=== PATIENT | female | born 1960 | race Caucasian/White ===

== ENCOUNTER 2016-09-21 23:04 | Inpatient (IN) | payer MEDICARE, OTHER ==
[~2016-09-21] VITALS: Ht 165.1 cm; Wt 59.6 kg
[2016-09-21 23:04] VITALS: BP 108/70; PULSE 90; RESP 16; TEMP 96.4; O2SAT 100
[2016-09-21] MEDS ORDERED: SODIUM CHLORIDE 0.9% FLUSH 5 ML FLUSH IVF PRN (23:15)
[2016-09-21] MEDS ORDERED: PROPOFOL 1000 MG/100 ML INJ 100 ML IV SCH (23:15)
[2016-09-21 23:20] VITALS: O2SAT 99
[2016-09-21 23:30] LABS: AUTOMATED NEUTROPHIL # 7.6 TH/MM3 (1.8-7.7); BASOPHIL % 0.4 % (0.0-2.0); EOSINOPHIL # 0.4 TH/MM3 (0-0.4); EOSINOPHIL % 4.4 % (0.0-4.0); HEMATOCRIT 35.2 % (35.0-46.0); HEMO FLAGS DIFF FINAL; LYMPH % 11.2 % (9.0-44.0); LYMPHOCYTE # 1.1 TH/MM3 (1.0-4.8); MEAN CELL VOLUME 93.2 FL (80.0-100.0); MEAN CORPUSCULAR HEMOGLOBIN 30.6 PG (27.0-34.0); MEAN CORPUSCULAR HGB CONC 32.8 % (32.0-36.0); MONO % 8.6 % (0.0-8.0); NEUT % 75.4 % (16.0-70.0); PLATELET COUNT 155 TH/MM3 (150-450); RED BLOOD COUNT 3.77 MIL/MM3 (4.00-5.30); RED CELL DISTRIBUTION WIDTH 14.6 % (11.6-17.2)
[2016-09-21 23:41] LABS: APTT (PATIENT) 28.2 SEC (24.3-30.1); INTERNATIONAL NORMALIZED RATIO 0.9 RATIO
--- NOTE | 2016-09-21 23:42 | RADRPT ---
EXAM DATE/TIME: 09/21/2016 23:06 [facility] COMPARISON: No previous studies available for comparison. INDICATIONS : Please evaluate ET placement MEDICAL HISTORY : unobtainable SURGICAL HISTORY : unobtainable ENCOUNTER: Initial ACUITY: 1 day PAIN SCORE: Non-responsive. LOCATION: Bilateral chest FINDINGS: A single view of the chest demonstrates the lungs to be symmetrically aerated without evidence of mas s, infiltrate or effusion. Endotracheal tube 6 cm above the kleber. Nasogastric tube with tip in stom ach. The cardiomediastinal contours are unremarkable. Osseous structures are intact. CONCLUSION: 1. Endotracheal tube 6 cm above the kleber. 2. Lungs are clear. Saran Richardson MD on September 21, 2016 at 23:37 Board Certified Radiologist. This report was verified electronically.
[2016-09-21 23:52] LABS: ALT (GPT) 38 U/L (10-53); ANION GAP 4 MEQ/L (5-15); AST (GOT) 39 U/L (15-37); BICARBONATE 36.1 MEQ/L (21.0-32.0); BLOOD UREA NITROGEN 20 MG/DL (7-18); CHLORIDE 98 MEQ/L (98-107); GLOMERULAR FILTRATION RATE 43 ML/MIN (>89); MAGNESIUM 1.6 MG/DL (1.5-2.5); POTASSIUM 4.2 MEQ/L (3.5-5.1); SODIUM (NA) 138 MEQ/L (136-145)
--- NOTE | 2016-09-21 23:54 | PD ---
HPI Chief Complaint: Respiratory Distress Time Seen by Provider: 23:06 Travel History International Travel<30 days: No Contact w/Intl Traveler<30days: No History of Present Illness HPI Patient is a Syeda Faye, presents to ER by [facility] after they were called to her home as she was complaining of shortness of breath. As per EMS, patient has history of CHF and COPD. EMS reports that patient's pulse ox was in the low 70 % upon their arrival at the home, reports that patient was placed on oxygen and was given a neb treatment with no relief of symptoms. Reports that patient became apneic and decision was to intubate her. Patient was intubated using 4 mg of Ativan as well as 20 of etomidate by EMS. As per EMS, pt's is on route to hospital. PFSH Social History Tobacco Use: No Allergies-Medications (Allergen,Severity, Reaction): Coded Allergies: No Known Allergies (Unverified , 09/21/16) Reported Meds & Prescriptions Reported Meds & Active Scripts Active Reported Furosemide 20 Mg Tab 20 Mg PO EVERY OTHER DAY Atorvastatin (Atorvastatin Calcium) 80 Mg Tab 80 Mg PO HS Lisinopril 40 Mg Tab 40 Mg PO DAILY Ziprasidone 60 Mg Cap 60 Mg PO BID Isosorbide Dinitrate 20 Mg Tab 20 Mg PO TID Metoprolol Tartrate 100 Mg Tab 100 Mg PO BID Hydralazine (Hydralazine HCl) 25 Mg Tab 25 Mg PO TID Take with a meal Review of Systems ROS Limitations: Intubated Physical Exam Narrative GENERAL: Patient intubated, patient stable and in no acute distress at this time SKIN: Warm and dry. HEAD: Atraumatic. Normocephalic. EYES: Pupils equal and round. No scleral icterus. No injection or drainage. ENT: No nasal bleeding or discharge. Mucous membranes pink and moist. NECK: Trachea midline. No JVD. CARDIOVASCULAR: Regular rate and rhythm. No murmur appreciated. RESPIRATORY: No accessory muscle use. Rales and wheezing to lung bases GASTROINTESTINAL: Abdomen soft, non-tender, nondistended. Hepatic and splenic margins not palpable. MUSCULOSKELETAL: No obvious deformities. No clubbing. No cyanosis. No edema. Data Data Last Documented VS Vital Signs Date Time Temp Pulse Resp B/P Pulse Ox O2 Delivery O2 Flow Rate FiO2 09/22/16 00:00 96.8 105 14 127/70 100 Ventilator 100 09/21/16 23:04 15 Orders Electrocardiogram (09/21/16 23:06) B-Type Natriuretic Peptide (09/21/16 23:06) Ckmb (Isoenzyme) Profile (09/21/16 23:06) Complete Blood Count With Diff (09/21/16 23:06) Comprehensive Metabolic Panel (09/21/16 23:06) Magnesium (Mg) (09/21/16 23:06) Prothrombin Time / Inr (Pt) (09/21/16 23:06) Act Partial Throm Time (Ptt) (09/21/16 23:06) Troponin I (09/21/16 23:06) Lipase (09/21/16 23:06) Chest, Single Ap (09/21/16 23:06) Ecg Monitoring (09/21/16 23:06) Iv Access Insert/Monitor (09/21/16 23:06) Oximetry (09/21/16 23:06) Oxygen Administration (09/21/16 23:06) Sodium Chloride 0.9% Flush (Ns Flush) (09/21/16 23:15) Lactic Acid Sepsis Protocol (09/21/16 23:06) Influenzae A/B Antigen (09/21/16 23:06) Blood Culture (09/21/16 23:06) Arterial Blood Gas (Abg) (09/21/16 23:06) Davey-Gastric Tube Insert/Mon (09/21/16 23:10) Propofol 1000 Mg/100 Ml Inj (Diprivan 10 (09/21/16 23:15) CKMB (09/21/16 23:18) CKMB% (09/21/16 23:18) Sodium Chlor 0.9% 1000 Ml Inj (Ns 1000 M (09/22/16 00:15) Ct Pulmonary Angiogram (09/22/16 00:04) Admit Order (Ed Use Only) (09/22/16 00:30) Labs Laboratory Tests Test 09/21/16 09/21/16 09/21/16 23:18 23:20 23:45 White Blood Count 10.0 TH/MM3 Red Blood Count 3.77 MIL/MM3 Hemoglobin 11.6 GM/DL Hematocrit 35.2 % Mean Corpuscular Volume 93.2 FL Mean Corpuscular Hemoglobin 30.6 PG Mean Corpuscular Hemoglobin 32.8 % Concent Red Cell Distribution Width 14.6 % Platelet Count 155 TH/MM3 Mean Platelet Volume 8.3 FL Neutrophils (%) (Auto) 75.4 % Lymphocytes (%) (Auto) 11.2 % Monocytes (%) (Auto) 8.6 % Eosinophils (%) (Auto) 4.4 % Basophils (%) (Auto) 0.4 % Neutrophils # (Auto) 7.6 TH/MM3 Lymphocytes # (Auto) 1.1 TH/MM3 Monocytes # (Auto) 0.9 TH/MM3 Eosinophils # (Auto) 0.4 TH/MM3 Basophils # (Auto) 0.0 TH/MM3 CBC Comment DIFF FINAL Differential Comment Prothrombin Time 10.0 SEC Prothromb Time International 0.9 RATIO Ratio Activated Partial 28.2 SEC Thromboplast Time Lactic Acid Level 1.2 mmol/L Sodium Level 138 MEQ/L Potassium Level 4.2 MEQ/L Chloride Level 98 MEQ/L Carbon Dioxide Level 36.1 MEQ/L Anion Gap 4 MEQ/L Blood Urea Nitrogen 20 MG/DL Creatinine 1.09 MG/DL Estimat Glomerular Filtration 43 ML/MIN Rate Random Glucose 164 MG/DL Calcium Level 8.7 MG/DL Magnesium Level 1.6 MG/DL Total Bilirubin 0.2 MG/DL Aspartate Amino Transf 39 U/L (AST/SGOT) Alanine Aminotransferase 38 U/L (ALT/SGPT) Alkaline Phosphatase 153 U/L Total Creatine Kinase 103 U/L Creatine Kinase MB 0.9 NG/ML Troponin I LESS THAN 0.02 NG/ML B-Type Natriuretic Peptide 212 PG/ML Total Protein 7.2 GM/DL Albumin 4.0 GM/DL Lipase 84 U/L Urine Color LIGHT-YELLOW Urine Turbidity CLEAR Urine pH 6.0 Urine Specific [place] 1.007 Urine Protein 30 mg/dL Urine Glucose (UA) NEG mg/dL Urine Ketones NEG mg/dL Urine Occult Blood NEG Urine Nitrite NEG Urine Bilirubin NEG Urine Urobilinogen LESS THAN 2.0 MG/DL Urine Leukocyte Esterase NEG Urine RBC 2 /hpf Urine WBC 1 /hpf Urine Hyaline Casts 2 /lpf Urine Mucus FEW /lpf Microscopic Urinalysis Comment CULT NOT INDICATED Blood Gas Puncture Site RT FEMORAL Blood Gas Patient Temperature 98.6 Blood Gas HCO3 33 mmol/L Blood Gas Base Excess 7.2 mmol/L Blood Gas Oxygen Saturation 95 % Arterial Blood pH 7.30 Arterial Blood Partial 70 mmHg Pressure CO2 Arterial Blood Partial 527 mmHG Pressure O2 Arterial Blood Oxygen Content 16.8 Vol % Arterial Blood 2.7 % Carboxyhemoglobin Arterial Blood Methemoglobin 2.2 % Blood Gas Hemoglobin 11.6 G/DL Oxygen Delivery Device VENTILATOR Blood Gas Ventilator Setting AC14/550 5 PEEP Blood Gas Inspired Oxygen 100 % MDM Medical Decision Making Medical Screen Exam Complete: Yes Emergency Medical Condition: Yes Interpretation(s) Laboratory Tests Test 09/21/16 23:18 White Blood Count 10.0 TH/MM3 (4.0-11.0) Red Blood Count 3.77 MIL/MM3 (4.00-5.30) Hemoglobin 11.6 GM/DL (11.6-15.3) Hematocrit 35.2 % (35.0-46.0) Mean Corpuscular Volume 93.2 FL (80.0-100.0) Mean Corpuscular Hemoglobin 30.6 PG (27.0-34.0) Mean Corpuscular Hemoglobin 32.8 % Concent (32.0-36.0) Red Cell Distribution Width 14.6 % (11.6-17.2) Platelet Count 155 TH/MM3 (150-450) Mean Platelet Volume 8.3 FL (7.0-11.0) Neutrophils (%) (Auto) 75.4 % (16.0-70.0) Lymphocytes (%) (Auto) 11.2 % (9.0-44.0) Monocytes (%) (Auto) 8.6 % (0.0-8.0) Eosinophils (%) (Auto) 4.4 % (0.0-4.0) Basophils (%) (Auto) 0.4 % (0.0-2.0) Neutrophils # (Auto) 7.6 TH/MM3 (1.8-7.7) Lymphocytes # (Auto) 1.1 TH/MM3 (1.0-4.8) Monocytes # (Auto) 0.9 TH/MM3 (0-0.9) Eosinophils # (Auto) 0.4 TH/MM3 (0-0.4) Basophils # (Auto) 0.0 TH/MM3 (0-0.2) CBC Comment DIFF FINAL Differential Comment Prothrombin Time 10.0 SEC (9.8-11.6) Prothromb Time International 0.9 RATIO Ratio Activated Partial 28.2 SEC Thromboplast Time (24.3-30.1) Sodium Level 138 MEQ/L (136-145) Potassium Level 4.2 MEQ/L (3.5-5.1) Chloride Level 98 MEQ/L (98-107) Carbon Dioxide Level 36.1 MEQ/L (21.0-32.0) Anion Gap 4 MEQ/L (5-15) Blood Urea Nitrogen 20 MG/DL (7-18) Creatinine 1.09 MG/DL (0.50-1.00) Estimat Glomerular Filtration 43 ML/MIN (>89) Rate Random Glucose 164 MG/DL (74-106) Lactic Acid Level 1.2 mmol/L (0.4-2.0) Calcium Level 8.7 MG/DL (8.5-10.1) Magnesium Level 1.6 MG/DL (1.5-2.5) Total Bilirubin 0.2 MG/DL (0.2-1.0) Aspartate Amino Transf 39 U/L (15-37) (AST/SGOT) Alanine Aminotransferase 38 U/L (10-53) (ALT/SGPT) Alkaline Phosphatase 153 U/L (45-117) Total Creatine Kinase 103 U/L (26-192) Troponin I LESS THAN 0.02 NG/ML (0.02-0.05) Total Protein 7.2 GM/DL (6.4-8.2) Albumin 4.0 GM/DL (3.4-5.0) Lipase 84 U/L (73-393) EKG at 2306: Normal sinus rhythm at 90 bpm, QT/QTc 390/437, LVH, diffuse ST segment depressions Vital Signs Date Time Temp Pulse Resp B/P Pulse Ox O2 Delivery O2 Flow Rate FiO2 09/21/16 23:20 99 100 Last Impressions Chest X-Ray 09/21/16 2306 Signed Impressions: Service Date/Time: Wednesday, September 21, 2016 23:06 - CONCLUSION: 1. Endotracheal tube 6 cm above the kleber. 2. Lungs are clear. Saran Richardson MD Differential Diagnosis COPD exacerbation, CHF, ACS, arrhythmia, electrolyte abnormality, pneumothorax, pneumonia Narrative Course Patient is a Syeda Faye who presents to emergency room intubated by EMS. EMS reports that they were called to home as patient was complaining of shortness of breath. Patient was intubated as she had acute respiratory distress with a pulse ox of 70% on room air. No family at bedside at this time, we have no previous history on patient, will talk to patient's once he arrives to emergency room. Patient's friend in ER, reports that pt's name is Shanice Lynch, Shanice is 56 years old with hx of COPD, reports that she always wears 3Loxygen at all times. Reports that she complaint of increased shortness of breath today. Reports that they had taken out the big tank of oxygen today so she can use up to 5L of oxygen. Reports that she did become tired of breathing, her friend offered to call 911 and get help, reports that now was called. Patient's friend reports that they have been together for the past 20 years, he does not know any other medical problems except that she did have open-heart surgery in the past. Diagnosis Primary Impression: Ventilator dependence Peyton Carr DO Sep 21, 2016 23:54
[2016-09-21 23:56] LABS: ALKALINE PHOSPHATASE 153 U/L (45-117); CREATINE KINASE 103 U/L (26-192); TOTAL BILIRUBIN ADULT 0.2 MG/DL (0.2-1.0)
[2016-09-22] VITALS (22 sets, daily range): BP systolic 107–164; BP diastolic 65–77; PULSE 87–106; RESP 14–18; TEMP 96.8–98.7; O2SAT 94–100
[2016-09-22 00:08] LABS: CKMB 0.9 NG/ML (0.5-3.6)
[2016-09-22] MEDS ORDERED: SODIUM CHLOR 0.9% 1000 ML INJ 1,000 ML IV ONE (00:15)
[2016-09-22 00:22] LABS: BLOOD GAS BASE EXCESS 7.2 mmol/L (-2-2); BLOOD GAS CARBOXYHEMOGLOBIN 2.7 % (0-4); BLOOD GAS HCO3 33 mmol/L (22-26); BLOOD GAS METHEMOGLOBIN 2.2 % (0-2); BLOOD GAS O2 HGB SATURATION 95 % (90-100); BLOOD GAS OXYGEN CONTENT 16.8 Vol % (12.0-20.0); BLOOD GAS PCO2 70 mmHg (38-42); BLOOD GAS PO2 527 mmHG (61-120); BLOOD GAS TOTAL HGB 11.6 G/DL (12.0-16.0); OXYGEN DEVICE VENTILATOR; TEMP CORR TO 98.6
[2016-09-22 00:23] LABS: DRAW SITE RT FEMORAL; FIO2 100 %; NUMBER OF ARTERIAL PUNCTURES 1; STAT YES; VENT SETTINGS AC14/550 5 PEEP
--- NOTE | 2016-09-22 00:49 | HHI.HP ---
[facility] Service Critical Care Medicine Primary Care Physician Unknown Admission Diagnosis Diagnosis: Travel History International Travel<30 Days: No Contact w/Intl Traveler <30 Da: No Traveled to Known Affected Are: No History of Present Illness 56-year-old female who came in as "Syeda Vitale "who is reportedly named Shanice Lynch. She has a history of hypertension, coronary artery disease with prior 4 vessel CABG, CHF, COPD who is on 3 L of home oxygen therapy. She presented to [facility] emergency department on 09/21/15 at around 1700 with complaints of a 6 day history of fatigue and a couple of days of cough productive of green sputum. She was wheezing upon presentation and was administered Solu-Medrol 125 mg IV and 3 DuoNeb's in the emergency department. She denied chest pain. She felt symptomatically improved and was discharged with prescriptions for DuoNeb, azithromycin, and prednisone. Tonight 09/21 she presented again to the emergency department at 2300 after she was brought in by [facility] with severe respiratory distress. Room air sats were 70s upon their arrival and she did not improve with DuoNebs. She was having apneic episodes in the ED and was intubated by Dr. Carr. Post intubation ABG demonstrates acute on chronic hypercapnic respiratory failure with pH of 7.30/PaCO2 of 70/PA O2 of 527/bicarbonate 33. Temp is 96.4. Chest x-ray demonstrates hyperinflation but lungs are clear. WBC 10. Past Family Social History Allergies: Coded Allergies: No Known Allergies (Unverified , 09/21/16) Past Medical History COPD CAD with prior 4 vCABG Past Surgical History 4 vCABG She had also has an abdominal surgical scar but surgical history from this is unclear. Reported Medications Amlodipine Besylate 10 mg (Amlodipine Besylate) 10 Mg Tab 1 Tab PO DAILY Lisinopril 40 mg (Lisinopril) 40 Mg Tab 1 Tab PO DAILY Isosorbide Mononitrate 20 Mg Tab 20 Mg PO TID Hydralazine HCl 10 Mg Tab 2.5 Mg PO TID Furosemide 20 Mg Tab 20 Mg PO EVERY OTHER DAY Metoprolol Succinate ER 100 mg (Metoprolol Succinate) 100 Mg Tab 100 Mg PO BID Geodon (Ziprasidone) 60 Mg Cap 60 Mg PO BID Family History Unable to obtain secondary to patient's clinical condition. Social History Unable to obtain secondary to patient's clinical condition. Her boyfriend has left to go obtain her medication list from the hotel. Lives with her boyfriend. Physical Exam Vital Signs Vital Signs Date Time Temp Pulse Resp B/P Pulse Ox O2 Delivery O2 Flow Rate FiO2 09/22/16 00:00 96.8 105 14 127/70 100 Ventilator 100 09/21/16 23:20 99 100 09/21/16 23:04 100 09/21/16 23:04 96.4 90 16 108/70 09/21/16 23:04 100 Bag Valve 15 09/21/16 23:04 90 16 100 Bag Valve 15 09/21/16 23:04 16 100 15 Physical Exam Drips: Propofol Temp 96.8 blood pressure 107/65 pulse 103 sats 95% on mechanical ventilation GENERAL: female who is orotracheally intubated, she is waking up on some light sedation. SKIN: Warm and dry. HEAD: Atraumatic. Normocephalic. EYES: Pupils 5 mm and reactive to 4 mm bilaterally. No scleral icterus. No injection or drainage. ENT: No nasal bleeding or discharge. Mucous membranes dry. NECK: Trachea midline. Jugular veins are flat. CARDIOVASCULAR: Regular rate and rhythm, sinus rhythm on monitor without murmurs rubs or gallops. CHEST: Midline sternotomy scar. RESPIRATORY: Breath sounds diminished bilaterally with diffuse bilateral expiratory wheeze and prolonged expiratory phase. There is blood tinged thin secretions with suctioning. No Rales. GASTROINTESTINAL: Abdomen soft, non-tender, nondistended. Bowel sounds are present. There is a midline abdominal scar. : Bains in place with very pale yellow urine output. MUSCULOSKELETAL: Extremities without clubbing, cyanosis, or edema. No obvious deformities. NEUROLOGICAL: Eyes open to voice and makes eye contact. Follows commands by squeezing hands and moving feet bilaterally. No focal deficit apparent. No facial droop. Is intubated and therefore unable to assess speech. Laboratory Laboratory Tests Test 09/21/16 09/21/16 23:18 23:45 White Blood Count 10.0 Red Blood Count 3.77 Hemoglobin 11.6 Hematocrit 35.2 Mean Corpuscular Volume 93.2 Mean Corpuscular Hemoglobin 30.6 Mean Corpuscular Hemoglobin 32.8 Concent Red Cell Distribution Width 14.6 Platelet Count 155 Mean Platelet Volume 8.3 Neutrophils (%) (Auto) 75.4 Lymphocytes (%) (Auto) 11.2 Monocytes (%) (Auto) 8.6 Eosinophils (%) (Auto) 4.4 Basophils (%) (Auto) 0.4 Neutrophils # (Auto) 7.6 Lymphocytes # (Auto) 1.1 Monocytes # (Auto) 0.9 Eosinophils # (Auto) 0.4 Basophils # (Auto) 0.0 CBC Comment DIFF FINAL Differential Comment Prothrombin Time 10.0 Prothromb Time International 0.9 Ratio Activated Partial 28.2 Thromboplast Time Lactic Acid Level 1.2 Sodium Level 138 Potassium Level 4.2 Chloride Level 98 Carbon Dioxide Level 36.1 Anion Gap 4 Blood Urea Nitrogen 20 Creatinine 1.09 Estimat Glomerular Filtration 43 Rate Random Glucose 164 Calcium Level 8.7 Magnesium Level 1.6 Total Bilirubin 0.2 Aspartate Amino Transf 39 (AST/SGOT) Alanine Aminotransferase 38 (ALT/SGPT) Alkaline Phosphatase 153 Total Creatine Kinase 103 Creatine Kinase MB 0.9 Troponin I LESS THAN 0.02 B-Type Natriuretic Peptide 212 Total Protein 7.2 Albumin 4.0 Lipase 84 Blood Gas Puncture Site RT FEMORAL Blood Gas Patient Temperature 98.6 Blood Gas HCO3 33 Blood Gas Base Excess 7.2 Blood Gas Oxygen Saturation 95 Arterial Blood pH 7.30 Arterial Blood Partial 70 Pressure CO2 Arterial Blood Partial 527 Pressure O2 Arterial Blood Oxygen Content 16.8 Arterial Blood 2.7 Carboxyhemoglobin Arterial Blood Methemoglobin 2.2 Blood Gas Hemoglobin 11.6 Oxygen Delivery Device VENTILATOR Blood Gas Ventilator Setting AC14/550 5 PEEP Blood Gas Inspired Oxygen 100 Date/Time Procedure Status Source Growth 09/21/16 23:18 Aerobic Blood Culture Received Blood Peripheral Pending 09/21/16 23:18 Anaerobic Blood Culture Received Blood Peripheral Pending Result Diagram: 09/21/168 09/21/162317 Assessment and Plan Assessment and Plan NEURO: ? Psych history Propofol for sedation Target RASS -2 Daily sedation vacation Hold home med of Geodon 60 mg By mouth twice a day. Can use IM Geodon if needed. RESP: Acute on chronic hypercapnic respiratory failure Acute COPD exacerbation ACV tidal volume 550/rate 14/P5/FiO2 50%. No evidence of air trapping on waveforms currently. Ventilator bundle. DuoNeb every 4 hours scheduled. Albuterol every 2 hours when necessary. Solu-Medrol 60 mg IV every 6 hours. Follow-up ABG in a.m. Follow-up results of CT pulmonary angiogram. Daily spontaneous breathing trials Chest x-ray 09/22/16 demonstrates satisfactory endotracheal tube position. No infiltrate. No pneumothorax. CV: Hypertension Coronary artery disease history of four-vessel CABG Reported history of CHF Troponin is normal at 0.02. BNP is mildly elevated at 212 although clinically it does not seem that heart failure is her primary issue currently. EKG Amlodipine 10 mg (Amlodipine Besylate) 10 Mg Tab 1 Tab PO DAILY Lisinopril 40 mg (Lisinopril) 40 Mg Tab 1 Tab PO DAILY Isosorbide Mononitrate 20 Mg Tab 20 Mg PO TID Hydralazine HCl 10 Mg Tab 2.5 Mg PO TID Furosemide 20 Mg Tab 20 Mg PO EVERY OTHER DAY Metoprolol Succinate ER 100 mg (Metoprolol Succinate) 100 Mg Tab 100 Mg PO BID Geodon (Ziprasidone) 60 Mg Cap 60 Mg PO BID GI: OG tube to low intermittent wall suction. Initiate enteral feedings if not extubating within 24 hours. FEN/RENAL: Acute kidney injury Unknown baseline creatinine. Clinically she appears intravascularly dry and probably has had increased insensible losses due to COPD exacerbation. Will use gentle fluids within a 75 mL per hour but monitor closely for evidence of volume overload. Follow up BMP Bains in place. Monitor intake and output. Monitor electrolytes and replace as indicated per ICU electrolyte replacement protocol ID: Cristiana for COPD exacerbation. 750 mg IV every 24 hours, dose creatinine clearance of 55. HEME: Monitor CBC ENDO: Euglycemic. Low-dose insulin sliding scale with bedside glucose every 6 hours while on steroids. PROPH: SCDs and Lovenox 40 mg subcutaneous daily for DVT prophylaxis. Protonix 40 g IV daily for stress ulcer prophylaxis. ACCESS: Peripheral IV providing adequate access at this time. Patient's boyfriend apparently went to the hotel to pick up truck driver a list of her medications and some other information that was needed. Will update him when he returns Discussed with ED RN. Discussed with Dr. Carr. Critical care time 60 minutes exclusive of separately billable procedures. Sruthi Hermosillo MD Sep 22, 2016 00:49
[2016-09-22 01:07] LABS: BLOOD, URINE NEG (NEG); COMMENT (UR) CULT NOT INDICATED; CULTURE IF INDICATED CULT NOT INDICATED; GLUCOSE,URINE NEG (NEG); HYALINE CAST, URINE 2 /lpf (RARE); KETONE, URINE NEG (NEG); MUCUS URINE FEW /lpf (OCC); NITRITE,URINE NEG (NEG); URINE COLOR LIGHT-YELLOW (YELLW/STRAW)
[2016-09-22] MEDS ORDERED: ACETAMINOPHEN 325 MG TAB PO PRN (01:15)
[2016-09-22] MEDS ORDERED: CHLORHEXIDINE GLUCONATE 2 % 1 PACK (2 CLOTHS) TOP PRN (01:15)
[2016-09-22] MEDS ORDERED: ONDANSETRON HCL 4 MG/2 ML VIAL IV PRN (01:15)
[2016-09-22] MEDS ORDERED: MISCELLANEOUS NURSING INFORMATION XX SCH (01:15)
[2016-09-22] MEDS ORDERED: SODIUM CHLORIDE 0.9% FLUSH 5 ML FLUSH IV FLUSH PRN (01:15)
[2016-09-22] MEDS: LEVOFLOXACIN 750 MG PREMIX INJ 150 ML IV SCH (01:16)
[2016-09-22] MEDS: methylPREDNISolone SOD SUCC 125 MG/2 ML VIAL IV PUSH SCH ×4 (01:16→18:04)
[2016-09-22] MEDS ORDERED: GLUCAGON 1 MG/ML VIAL OTHER PRN (01:30)
[2016-09-22] MEDS ORDERED: DEXTROSE 50% IN WATER 50 ML VIAL(D50) IV PUSH PRN (01:30)
[2016-09-22] MEDS: SODIUM CHLOR 0.9% 1000 ML INJ 1,000 ML IV SCH ×2 (01:45→14:34)
[2016-09-22] MEDS: ENOXAPARIN SODIUM 40 MG/0.4 ML SYRINGE SQ SCH (01:45)
[2016-09-22] MEDS ORDERED: IOHEXOL 350 MG/ML 10 ML VIAL (for RAD DIAG) IV ONE (02:34)
--- NOTE | 2016-09-22 02:49 | RADRPT ---
EXAM DATE/TIME: 09/22/2016 02:29 [facility] COMPARISON: No previous studies available for comparison. INDICATIONS : Respiratory distress. Evaluate for embolism. IV CONTRAST: 80 cc Omnipaque 350 (iohexol) IV RADIATION DOSE: 4.65 CTDIvol (mGy) MEDICAL HISTORY : Non-responsive. SURGICAL HISTORY : Non-responsive. ENCOUNTER: Initial ACUITY: 1 day PAIN SCALE: Non-responsive LOCATION: chest TECHNIQUE: Volumetric scanning of the chest was performed using a pulmonary embolism protocol MIP images were re constructed. Using automated exposure control and adjustment of the mA and/or kV according to patien t size, radiation dose was kept as low as reasonably achievable to obtain optimal diagnostic quality images. FINDINGS: PULMONARY ARTERIES: No filling defects are seen in the pulmonary arteries through the segmental level. LUNGS: Severe emphysema. Patchy densities in the right middle lobe and lingula. Amanda densities in the post erior left lower lobe measure 1.2 cm and 7 mm. There is no consolidation or pneumothorax . No concer wendie pulmonary nodule is visualized. PLEURAE: There is no pleural thickening or pleural effusion. MEDIASTINUM: There is good visualization of the great vessels of the middle mediastinum. No evidence of mediastin al or hilar adenopathy/mass. Status post CABG. MUSCULOSKELETAL: Within normal limits for patient age. MISCELLANEOUS: The visualized upper abdominal organs demonstrate no acute abnormality. Endotracheal tube and nasogas tric tube in position. CONCLUSION: 1. Severe emphysema. 2. No evidence for pulmonary embolism. 3. Minimal patchy densities right middle lobe and lingula. 4. Status post CABG. 5. Nonspecific left lower lobe densities. Followup CT chest in 3 months recommended for stability. Saran Richardson MD on September 22, 2016 at 2:43 Board Certified Radiologist. This report was verified electronically.
[2016-09-22] MEDS: RESP: ALBUTEROL 2.5 MG/IPRATROPIUM 0.5 MG NEB (SCH) NEB ×6 (03:07→23:40)
[2016-09-22] MEDS: CHLORHEXIDINE GLUCONATE 2 % 1 PACK (2 CLOTHS) TOP SCH (03:14)
[2016-09-22] MEDS: INSULIN ASPART SUPPLEMENTAL SCALE SQ SCH ×4 (04:35→20:21)
[2016-09-22 05:23] LABS: BLOOD GAS BASE EXCESS 7.2 mmol/L (-2-2); BLOOD GAS CARBOXYHEMOGLOBIN 1.8 % (0-4); BLOOD GAS HCO3 32 mmol/L (22-26); BLOOD GAS METHEMOGLOBIN 1.3 % (0-2); BLOOD GAS O2 HGB SATURATION 94 % (90-100); BLOOD GAS OXYGEN CONTENT 14.2 Vol % (12.0-20.0); BLOOD GAS PCO2 52 mmHg (38-42); BLOOD GAS PO2 82 mmHg (61-120); BLOOD GAS TOTAL HGB 10.7 G/DL (12.0-16.0); TEMP CORR TO 98.6
[2016-09-22 05:24] LABS: CRITICAL VALUE YES; DRAW SITE RT RADIAL; FIO2 40 %; NUMBER OF ARTERIAL PUNCTURES 1; OXYGEN DEVICE VENTILATOR; STAT NO; ULNAR PULSE PRESENT; VENT SETTINGS AC 14/550/5PEEP
[2016-09-22] MEDS: PROPOFOL 1000 MG/100 ML INJ 100 ML IV SCH ×2 (07:12→21:23)
[2016-09-22] MEDS: CHLORHEXIDINE 0.12% (ORAL KIT) 15 ML CUP MT SCH ×2 (08:00→20:20)
--- NOTE | 2016-09-22 08:27 | EKG ---
Date Performed: 09/21/2016 Time Performed: 23:06:37 PTAGE: 89 years EKG: Sinus rhythm VOLTAGE CRITERIA FOR LVH NONSPECIFIC ST CHANGES ABNORMAL ECG NO PREVIOUS TRACING DOCTOR: Tacos Cortez Interpretating Date/Time 09/22/2016 08:25:45
[2016-09-22] MEDS: DOCUSATE SODIUM 100 MG CAP PO SCH ×2 (09:00→20:20)
[2016-09-22] MEDS: PANTOPRAZOLE SODIUM 40 MG VIAL IV SCH (09:00)
[2016-09-22] MEDS: SODIUM CHLORIDE 0.9% FLUSH 5 ML FLUSH IV FLUSH SCH ×2 (09:00→20:20)
[2016-09-22] MEDS ORDERED: HYDR25TA35 PO (09:10)
[2016-09-22] MEDS ORDERED: METO100T PO (09:11)
[2016-09-22] MEDS ORDERED: ISOS20TA2 PO (09:11)
[2016-09-22] MEDS ORDERED: LISI40TA PO (09:12)
[2016-09-22] MEDS ORDERED: ZIPR1CAP10 PO (09:12)
[2016-09-22] MEDS ORDERED: ATOR1TAB18 PO (09:13)
[2016-09-22] MEDS ORDERED: AMLOPOW PO (09:15)
[2016-09-22] MEDS ORDERED: FURO20TA PO (09:15)
--- NOTE | 2016-09-22 16:17 | EC ---
Study Study Date:09/22/2016 STUDY CONCLUSIONS SUMMARY - Left ventricle: The cavity size was normal. Wall thickness was normal. Systolic function was mildly reduced. The estimated ejection fraction was in the range of 45% to 50%. Wall motion was normal; there were no regional wall motion abnormalities. - Mitral valve: Mild regurgitation. - Pulmonary arteries: PA peak pressure: 41mm Hg (S). If LV function is below 40, please consider prescribing an ACEI or ARB or document rationale for non-use. PROCEDURE DATA STUDY STATUS: Elective. Procedure: Transthoracic echocardiography. Image quality was suboptimal. Scanning was performed from the parasternal, apical, and subcostal acoustic windows. Study completion: The patient tolerated the procedure well. Transthoracic echocardiography. M-mode, complete 2D, complete spectral Doppler, and color Doppler. Patient status: Inpatient. CARDIAC ANATOMY LEFT VENTRICLE: The cavity size was normal. Wall thickness was normal. Systolic function was mildly reduced. The estimated ejection fraction was in the range of 45% to 50%. Wall motion was normal; there were no regional wall motion abnormalities. AORTIC VALVE: Trileaflet; normal thickness leaflets. Doppler: Transvalvular velocity was within the normal range. There was no stenosis. No regurgitation. AORTA: Aortic root: The aortic root was normal in size. MITRAL VALVE: Structurally normal valve. Doppler: Transvalvular velocity was within the normal range. There was no evidence for stenosis. Mild regurgitation. Peak gradient: 3mm Hg (D). LEFT ATRIUM: The atrium was normal in size. RIGHT VENTRICLE: The cavity size was normal. Wall thickness was normal. PULMONIC VALVE: Doppler: Transvalvular velocity was within the normal range. There was no evidence for stenosis. No regurgitation. TRICUSPID VALVE: Structurally normal valve. Doppler: Transvalvular velocity was within the normal range. Trace regurgitation. PULMONARY ARTERY: The main pulmonary artery was normal-sized. Systolic pressure was within the normal range. RIGHT ATRIUM: The atrium was normal in size. PERICARDIUM: There was no pericardial effusion. SYSTEMIC VEINS: Inferior vena cava: The vessel was normal in size. BASIC MEASUREMENTS ADULT NORMAL Left ventricle LV internal dimension, ED, chordal level, *42 mm 43-52 PLAX LV posterior wall thickness, ED 8.8 mm IVS/LVPW ratio, ED 0.91 <1.3 Ventricular septum Septal thickness, ED 8 mm Aortic valve Leaflet separation 19 mm 15-26 Left atrium Anterior-posterior dimension 32 mm Right ventricle RV internal dimension, ED, PLAX 21.1 mm 19-38 BASIC MEASUREMENTS ADULT NORMAL Aortic valve Leaflet separation 19 mm 15-26 Aorta Root diameter, ED 32 mm 20-37 DOPPLER MEASUREMENTS ADULT NORMAL Main pulmonary artery Pressure, S *41 mm Hg =30 Mitral valve Peak E-wave velocity 84.4 cm/s Peak A-wave velocity 53.8 cm/s Peak gradient, D 3 mm Hg Peak E/A ratio 1.6 Tricuspid valve Regurgitant peak velocity 149 cm/s Peak RV-RA gradient, S 9 mm Hg Maximal regurgitant velocity 149 cm/s Systemic veins Estimated CVP 10 mm Hg Right ventricle RV pressure, S *41 mm Hg <30 LEGEND: Mean values are shown as u=mean value. Asterisk (*) eng values outside specified normal range. Prepared and signed by Jay Yusuf [id number]
[2016-09-22] MEDS: ISOSORBIDE DINITRATE 20 MG TAB PO SCH (18:00)
[2016-09-22] MEDS: ZIPRASIDONE HCL 60 MG CAP PO SCH (20:20)
[2016-09-22] MEDS: ATORVASTATIN 80 MG TAB PO SCH (20:20)
[2016-09-23] VITALS (19 sets, daily range): BP systolic 12–199; BP diastolic 71–84; PULSE 89–104; RESP 17–24; TEMP 98–98.8; O2SAT 90–97
[2016-09-23] MEDS: LEVOFLOXACIN 750 MG PREMIX INJ 150 ML IV SCH (01:47)
[2016-09-23] MEDS: methylPREDNISolone SOD SUCC 125 MG/2 ML VIAL IV PUSH SCH ×3 (01:47→12:14)
[2016-09-23] MEDS: SODIUM CHLOR 0.9% 1000 ML INJ 1,000 ML IV SCH (01:47)
[2016-09-23] MEDS: ENOXAPARIN SODIUM 40 MG/0.4 ML SYRINGE SQ SCH (01:47)
[2016-09-23] MEDS: PROPOFOL 1000 MG/100 ML INJ 100 ML IV SCH ×2 (01:47→05:56)
[2016-09-23] MEDS: RESP: ALBUTEROL 2.5 MG/IPRATROPIUM 0.5 MG NEB (SCH) NEB ×5 (03:31→20:01)
[2016-09-23] MEDS: CHLORHEXIDINE GLUCONATE 2 % 1 PACK (2 CLOTHS) TOP SCH (04:00)
[2016-09-23 04:06] LABS: AUTOMATED NEUTROPHIL # 5.9 TH/MM3 (1.8-7.7); BASOPHIL % 0.2 % (0.0-2.0); EOSINOPHIL % 0.1 % (0.0-4.0); HEMATOCRIT 29.6 % (35.0-46.0); HEMO FLAGS DIFF FINAL; LYMPH % 10.2 % (9.0-44.0); LYMPHOCYTE # 0.7 TH/MM3 (1.0-4.8); MEAN CELL VOLUME 91.9 FL (80.0-100.0); MEAN CORPUSCULAR HEMOGLOBIN 31.1 PG (27.0-34.0); MEAN CORPUSCULAR HGB CONC 33.8 % (32.0-36.0); MONO % 7.8 % (0.0-8.0); NEUT % 81.7 % (16.0-70.0); PLATELET COUNT 137 TH/MM3 (150-450); RED BLOOD COUNT 3.22 MIL/MM3 (4.00-5.30); RED CELL DISTRIBUTION WIDTH 14.6 % (11.6-17.2); WHITE BLOOD COUNT 7.2 TH/MM3 (4.0-11.0)
[2016-09-23 04:07] LABS: ALKALINE PHOSPHATASE 97 U/L (45-117); ALT (GPT) 30 U/L (10-53); ANION GAP 5 MEQ/L (5-15); AST (GOT) 24 U/L (15-37); BICARBONATE 31.7 MEQ/L (21.0-32.0); BLOOD UREA NITROGEN 17 MG/DL (7-18); CHLORIDE 101 MEQ/L (98-107); GLOMERULAR FILTRATION RATE 46 ML/MIN (>89); MAGNESIUM 1.6 MG/DL (1.5-2.5); POTASSIUM 3.4 MEQ/L (3.5-5.1); SODIUM (NA) 138 MEQ/L (136-145); TOTAL BILIRUBIN ADULT 0.3 MG/DL (0.2-1.0)
[2016-09-23] MEDS: INSULIN ASPART SUPPLEMENTAL SCALE SQ SCH ×4 (05:56→21:39)
[2016-09-23] MEDS: ZIPRASIDONE HCL 60 MG CAP PO SCH ×2 (08:11→21:39)
[2016-09-23] MEDS: PANTOPRAZOLE SODIUM 40 MG VIAL IV SCH (08:11)
[2016-09-23] MEDS: ISOSORBIDE DINITRATE 20 MG TAB PO SCH ×3 (08:11→17:31)
[2016-09-23] MEDS: CHLORHEXIDINE 0.12% (ORAL KIT) 15 ML CUP MT SCH ×2 (08:11→20:00)
[2016-09-23] MEDS: SODIUM CHLORIDE 0.9% FLUSH 5 ML FLUSH IV FLUSH SCH ×2 (08:11→21:39)
[2016-09-23] MEDS: DOCUSATE SODIUM 100 MG CAP PO SCH ×2 (08:11→21:39)
[2016-09-23] MEDS ORDERED: METOPROLOL TARTRATE 5 MG/5 ML VIAL IV PUSH STA (08:51)
[2016-09-23] MEDS ORDERED: METOPROLOL TARTRATE 5 MG/5 ML VIAL ONE (08:54)
--- NOTE | 2016-09-23 08:59 | HHI.CCPN ---
Subjective Remarks/Hospital Course 09/22: 56-year-old female who came in as "Syeda Vitale "who is reportedly named Shanice Lynch. She has a history of hypertension, coronary artery disease with prior 4 vessel CABG, CHF, COPD who is on 3 L of home oxygen therapy. She presented to [facility] emergency department on at around 1700 with complaints of a 6 day history of fatigue and a couple of days of cough productive of green sputum. She was wheezing upon presentation and was administered Solu-Medrol 125 mg IV and 3 DuoNeb's in the emergency department. She denied chest pain. She felt symptomatically improved and was discharged with prescriptions for DuoNeb, azithromycin, and prednisone. Tonight 09/21 she presented again to the emergency department at 2300 after she was brought in by [facility] with severe respiratory distress. Room air sats were 70s upon their arrival and she did not improve with DuoNebs. She was having apneic episodes in the ED and was intubated by Dr. Carr. Post intubation ABG demonstrates acute on chronic hypercapnic respiratory failure with pH of 7.30/ PaCO2 of 70/PA O2 of 527/bicarbonate 33. Temp is 96.4. Chest x-ray demonstrates hyperinflation but lungs are clear. WBC 10. /10: Easily arouses off sedation, on mechanical ventilation. Heart rate shot up following suctioning and she was in sinus tachycardia with a heart rate of 140s at the time of my evaluation with a systolic blood pressure 180s. Lopressor 5 g IV stat ordered. She is on a C Pap trial Objective Vital Signs Date Time Temp Pulse Resp B/P Pulse Ox O2 Delivery O2 Flow Rate FiO2 09/23/16 07:57 96 40 09/23/16 06:00 92 09/23/16 04:00 98.4 17 167/77 09/22/16 02:00 Ventilator 09/21/16 23:04 15 Intake and Output 09/22/16 09/22/16 09/23/16 08:00 16:00 00:00 Intake Total 219 ml 200 ml 1678 ml Output Total 1600 ml 350 ml 850 ml Balance -1381 ml -150 ml 828 ml Result Diagram: 09/23/16 0300 09/23/16 0300 Other Results Microbiology Date/Time Procedure Status Source Growth 09/22/16 04:47 Influenza Types A,B Antigen (JONATHON) - Final Complete Nasal Aspirate NEGATIVE FOR FLU A AND B ANTIGEN.... Imaging Last Impressions CT Angiography 09/22/16 0004 Signed Impressions: Service Date/Time: Thursday, September 22, 2016 02:29 - CONCLUSION: 1. Severe emphysema. 2. No evidence for pulmonary embolism. 3. Minimal patchy densities right middle lobe and lingula. 4. Status post CABG. 5. Nonspecific left lower lobe densities. Followup CT chest in 3 months recommended for stability. Saran Richardson MD Chest X-Ray 09/21/166 Signed Impressions: Service Date/Time: Wednesday, September 21, 2016 23:06 - CONCLUSION: 1. Endotracheal tube 6 cm above the kleber. 2. Lungs are clear. Saran Richardson MD Objective Remarks Drips: Propofol GENERAL: female who is orotracheally intubated, she is waking up on some light sedation. SKIN: Warm and dry. HEAD: Atraumatic. Normocephalic. EYES: Pupils 5 mm and reactive to 4 mm bilaterally. No scleral icterus. No injection or drainage. ENT: No nasal bleeding or discharge. Mucous membranes dry. NECK: Trachea midline. Jugular veins are flat. CARDIOVASCULAR: Regular rate and rhythm, sinus rhythm on monitor without murmurs rubs or gallops. CHEST: Midline sternotomy scar. RESPIRATORY: On mechanical ventilation, good air entry bilaterally, scattered rhonchi, no wheezing or crackles. GASTROINTESTINAL: Abdomen soft, non-tender, nondistended. Bowel sounds are present. There is a midline abdominal scar. : Bains in place with very pale yellow urine output. MUSCULOSKELETAL: Extremities without clubbing, cyanosis, or edema. No obvious deformities. NEUROLOGICAL: Eyes open to voice and makes eye contact. Follows commands by squeezing hands and moving feet bilaterally. No focal deficit apparent. No facial droop. Is intubated and therefore unable to assess speech. A/P Assessment and Plan NEURO: ? Psych history Propofol for sedation Target RASS -2 Daily sedation vacation Resume home med of Geodon 60 mg By mouth twice a day. Acute on chronic hypercapnic respiratory failure Acute COPD exacerbation ACV tidal volume 550/rate 14/P5/FiO2 50%. No evidence of air trapping on waveforms currently. Ventilator bundle. DuoNeb every 4 hours scheduled. Albuterol every 2 hours when necessary. Solu-Medrol 60 mg IV every 6 hours. C Pap trials to decide extubation. CT pulmonary angina gram-negative for PE, severe emphysema with infiltrates Daily spontaneous breathing trials Chest x-ray 09/22/16 demonstrates satisfactory endotracheal tube position. No infiltrate. No pneumothorax. CV: Hypertension Coronary artery disease history of four-vessel CABG Reported history of CHF Troponin is normal at 0.02. BNP is mildly elevated at 212 although clinically it does not seem that heart failure is her primary issue currently. EKG Lopressor 5 g IV stat ordered. We will resume by mouth Lopressor, amlodipine and lisinopril. Isosorbide mononitrate already resumed. Amlodipine 10 mg (Amlodipine Besylate) 10 Mg Tab 1 Tab PO DAILY Lisinopril 40 mg (Lisinopril) 40 Mg Tab 1 Tab PO DAILY Isosorbide Mononitrate 20 Mg Tab 20 Mg PO TID Hydralazine HCl 10 Mg Tab 2.5 Mg PO TID Furosemide 20 Mg Tab 20 Mg PO EVERY OTHER DAY Metoprolol Succinate ER 100 mg (Metoprolol Succinate) 100 Mg Tab 100 Mg PO BID Geodon (Ziprasidone) 60 Mg Cap 60 Mg PO BID GI: OG tube to low intermittent wall suction. Initiate enteral feedings if not extubating within 24 hours. FEN/RENAL: Acute kidney injury Unknown baseline creatinine. Clinically she appears intravascularly dry and probably has had increased insensible losses due to COPD exacerbation. Will use gentle fluids within a 75 mL per hour but monitor closely for evidence of volume overload. Follow up [facility] Bains in place. Monitor intake and output. Monitor electrolytes and replace as indicated per ICU electrolyte replacement protocol ID: Cristiana for COPD exacerbation. 750 mg IV every 24 hours, dose creatinine clearance of 55. HEME: Monitor CBC ENDO: Euglycemic. Low-dose insulin sliding scale with bedside glucose every 6 hours while on steroids. PROPH: SCDs and Lovenox 40 mg subcutaneous daily for DVT prophylaxis. Protonix 40 g IV daily for stress ulcer prophylaxis. ACCESS: Peripheral IV providing adequate access at this time. Discussed with patient's boyfriend at bedside updated them regarding plan of care and he voiced understanding and was agreeable. Critical care time 30 minutes exclusive of separately billable procedures. Daniel Christiansen MD Sep 23, 2016 08:59
[2016-09-23] MEDS: METOPROLOL TARTRATE 50 MG TAB PO SCH ×4 (10:17→21:39)
[2016-09-23] MEDS: LISINOPRIL 20 MG TAB PO SCH (10:35)
[2016-09-23] MEDS: FUROSEMIDE 20 MG TAB PO SCH (10:35)
[2016-09-23] MEDS ORDERED: AMLO5TAB2 PO (11:03)
[2016-09-23] MEDS: hydrALAZINE HCL 25 MG TAB PO SCH ×2 (12:14→17:31)
[2016-09-23] MEDS: LABETALOL HCL 100 MG/20 ML VIAL IV PUSH PRN (15:39)
[2016-09-23] MEDS ORDERED: ALPRAZolam 0.25 MG TAB PO PRN (16:00)
[2016-09-23] MEDS: methylPREDNISolone SOD SUCC 40 MG/1 ML VIAL IV PUSH SCH (17:48)
[2016-09-23] MEDS: ATORVASTATIN 80 MG TAB PO SCH (21:39)
[2016-09-23] MEDS: RESP: ALBUTEROL 2.5 MG/3 ML NEB (PRN) NEB (23:08)
[2016-09-24] VITALS (12 sets, daily range): BP systolic 105–180; BP diastolic 58–86; PULSE 72–88; RESP 12–35; TEMP 97.6–98.7; O2SAT 88–98
[2016-09-24] MEDS: LABETALOL HCL 100 MG/20 ML VIAL IV PUSH PRN (00:20)
[2016-09-24] MEDS: ENOXAPARIN SODIUM 40 MG/0.4 ML SYRINGE SQ SCH (00:22)
[2016-09-24] MEDS: LEVOFLOXACIN 750 MG PREMIX INJ 150 ML IV SCH ×2 (00:22→23:53)
[2016-09-24] MEDS: methylPREDNISolone SOD SUCC 40 MG/1 ML VIAL IV PUSH SCH ×5 (00:22→23:54)
[2016-09-24] MEDS: RESP: ALBUTEROL 2.5 MG/IPRATROPIUM 0.5 MG NEB (SCH) NEB ×4 (03:00→19:36)
[2016-09-24] MEDS: CHLORHEXIDINE GLUCONATE 2 % 1 PACK (2 CLOTHS) TOP SCH (04:00)
[2016-09-24 05:09] LABS: AUTOMATED NEUTROPHIL # 8.7 TH/MM3 (1.8-7.7); BASOPHIL % 0.1 % (0.0-2.0); HEMATOCRIT 29.8 % (35.0-46.0); HEMO FLAGS DIFF FINAL; LYMPH % 4.2 % (9.0-44.0); LYMPHOCYTE # 0.4 TH/MM3 (1.0-4.8); MEAN CELL VOLUME 91.2 FL (80.0-100.0); MEAN CORPUSCULAR HEMOGLOBIN 30.7 PG (27.0-34.0); MEAN CORPUSCULAR HGB CONC 33.7 % (32.0-36.0); MONO % 4.4 % (0.0-8.0); NEUT % 91.3 % (16.0-70.0); PLATELET COUNT 154 TH/MM3 (150-450); RED BLOOD COUNT 3.27 MIL/MM3 (4.00-5.30); RED CELL DISTRIBUTION WIDTH 14.4 % (11.6-17.2); WHITE BLOOD COUNT 9.5 TH/MM3 (4.0-11.0)
[2016-09-24 05:42] LABS: ALKALINE PHOSPHATASE 86 U/L (45-117); ALT (GPT) 35 U/L (10-53); ANION GAP 7 MEQ/L (5-15); AST (GOT) 33 U/L (15-37); BICARBONATE 34.1 MEQ/L (21.0-32.0); BLOOD UREA NITROGEN 28 MG/DL (7-18); CHLORIDE 97 MEQ/L (98-107); GLOMERULAR FILTRATION RATE 57 ML/MIN (>89); MAGNESIUM 1.9 MG/DL (1.5-2.5); POTASSIUM 3.4 MEQ/L (3.5-5.1); SODIUM (NA) 138 MEQ/L (136-145); TOTAL BILIRUBIN ADULT 0.3 MG/DL (0.2-1.0)
[2016-09-24] MEDS: INSULIN ASPART SUPPLEMENTAL SCALE SQ SCH ×4 (05:44→23:00)
--- NOTE | 2016-09-24 05:55 | MB ---
cc: CHERELLE ALVARENGA DATE OF CONSULTATION 09/23/2016 ROOM 502. REASON FOR CONSULTATION COPD and pneumonia. PRESENT ILLNESS This is a 56-year-old white female known smoker with a history of hypertension and coronary artery disease who was admitted to the hospital with a cough and greenish-yellow sputum, shortness breath, wheezing and fatigue. The patient had been bringing up greenish mucus and denied any hemoptysis. She has been on inhaled bronchodilators, but upon arrival in the ER the patient was noted to be in severe respiratory distress and was intubated for respiratory failure. Initial blood gases demonstrated a pCO2 in the 70s and a pO2 for 500. The patient had to be sedated. Chest x-ray was clear and she was started on IV antibiotics, IV Solu-Medrol and was transferred to the intensive care unit. The patient was then weaned off the respirator and has been extubated now and is on a Ventimask at 50%. Denies any chest pain but still has a congested cough and she seems somewhat dazed, unable to answer too many questions. The patient denies any chest pains, however. PAST HISTORY 1. History of COPD on home oxygen at 3 liters. 2. History of coronary artery disease with coronary bypass graft x 4. 3. History of exploratory laparotomy. HABITS The patient smoked one-pack per day for 30 years. No significant alcohol. MEDICATION LIST 1. Proventil 2 puffs t.i.d. p.r.n. 2. Isordil 20 mg t.i.d. 3. Lisinopril 40 mg a day. 4. Lasix 20 mg every other day. 5. Metoprolol 100 mg b.i.d. 6. Geodon 60 mg b.i.d. ALLERGIES No drug allergies are listed. FAMILY HISTORY Noncontributory. Denies chronic lung disease. REVIEW OF SYSTEMS The patient is a poor historian and seems quite weak and lethargic and has just been weaned off the ventilator since today. She has no nausea, vomiting, no urinary symptoms. No leg or calf muscle pains but has had some joint pains. PHYSICAL EXAMINATION General: This is an averagely built middle-aged white female who is alert, in no acute distress. She is somewhat lethargic. Vital Signs: Blood pressure was 110/70, pulse is 108, respirations 22, temp is 98.7. HEENT: Head normocephalic. Pupils are reactive. Tongue moist. Nasal mucosa injected. Throat is not injected. There is an NG tube in the nostril. Neck: Supple without venous distension. No bruits or thyroid enlargement, no lymphadenopathy. Chest: Increased AP diameter with scattered wheezes throughout both lung shea. Prolonged expirations. No crackles. Heart: The heart sounds are regular. S1 and S2. No murmur. No S3. Abdomen: Soft, benign. No masses or organomegaly. Extremities: No edema. Neuro: Normal reflexes. There are no gross motor deficits. Cranial nerves are grossly intact. Rectal: Exam is deferred. Skin: No lesions. IMPRESSION 1. Acute hypercapnic respiratory failure, resolved. 2. COPD with emphysema and chronic bronchitis. 3. Anxiety and depression. 4. History of coronary artery disease status post CABG. PLAN 1. The patient is on a Ventimask and will be placed on nasal cannula at 4 liters. 2. She will be placed on nebulized DuoNeb solution q.i.d. and continue with Solu-Medrol at 40 mg IV every 8 hours. 3. Antibiotic therapy will be continued as ordered. 4. Chest x-ray to be repeated in the a.m. 5. Sputum will be sent for Gram's stain and culture. 6. Symbicort 160/4.5 two puffs twice a day. 7. Counseled about quitting cigarette smoking. 8. She will be continued on her regular home medications. Thank you Dr. Christiansen for this consultation. MD AARON Jolley/SHAMIR /11:20 PM /5:38 AM
--- NOTE | 2016-09-24 06:02 | RADRPT ---
EXAM DATE/TIME: 09/24/2016 04:42 [place] COMPARISON: CHEST SINGLE AP, September 21, 2016, 23:06. INDICATIONS : Shortness of breath. MEDICAL HISTORY : Non-responsive SURGICAL HISTORY : Non-responsive ENCOUNTER: Subsequent ACUITY: 4 - 6 days PAIN SCORE: Non-responsive. LOCATION: Bilateral chest FINDINGS: A single view of the chest demonstrates the lungs to be hyperaerated bibasilar subsegmental atelectas is. Status post CABG. Heart normal in size. The cardiomediastinal contours are unremarkable. Osseous structures are intact. CONCLUSION: 1. Hyperinflation and probable bibasilar atelectasis. Saran Richardson MD on September 24, 2016 at 5:59 Board Certified Radiologist. This report was verified electronically.
[2016-09-24] MEDS ORDERED: POTASSIUM PHOSPHATE INJ 30 MMOL in SODIUM CHLOR 0.9% 250 ML INJ 250 ML IV PRN (07:15)
[2016-09-24] MEDS ORDERED: MAGNESIUM SULFATE INJ 2 GM in SODIUM CHLORIDE 0.9% INJ 96 ML IV PRN (07:15)
[2016-09-24] MEDS ORDERED: MAGNESIUM SULFATE INJ 4 GM in SODIUM CHLORIDE 0.9% INJ 92 ML IV PRN (07:15)
[2016-09-24] MEDS ORDERED: POTASSIUM PHOSPHATE MONOBASIC 500 MG TAB PO PRN (07:15)
[2016-09-24] MEDS ORDERED: MAGNESIUM OXIDE 400 MG TAB PO PRN (07:15)
[2016-09-24] MEDS ORDERED: POTASSIUM PHOSPHATE MONOBASIC 500 MG TAB PO/TUBE PRN (07:15)
[2016-09-24] MEDS ORDERED: POTASSIUM CHLOR 20 MEQ PREMIX 100 ML IV PRN ×2 (07:15)
[2016-09-24] MEDS ORDERED: POTASSIUM CL 40 MEQ/30 ML LIQ UDC PO/TUBE PRN ×2 (07:15)
[2016-09-24] MEDS ORDERED: SODIUM PHOSPHATE INJ 30 MMOL in SODIUM CHLOR 0.9% 250 ML INJ 240 ML IV PRN (07:15)
[2016-09-24] MEDS ORDERED: POTASSIUM CHLOR 40 MEQ PREMIX 100 ML IV PRN ×2 (07:15)
--- NOTE | 2016-09-24 07:26 | HHI.CCPN ---
Subjective Remarks/Hospital Course 09/22: 56-year-old female who came in as "Syeda Vitale "who is reportedly named Shanice Lynch. She has a history of hypertension, coronary artery disease with prior 4 vessel CABG, CHF, COPD who is on 3 L of home oxygen therapy. She presented to [facility] emergency department on at around 1700 with complaints of a 6 day history of fatigue and a couple of days of cough productive of green sputum. She was wheezing upon presentation and was administered Solu-Medrol 125 mg IV and 3 DuoNeb's in the emergency department. She denied chest pain. She felt symptomatically improved and was discharged with prescriptions for DuoNeb, azithromycin, and prednisone. Tonight 09/21 she presented again to the emergency department at 2300 after she was brought in by [facility] with severe respiratory distress. Room air sats were 70s upon their arrival and she did not improve with DuoNebs. She was having apneic episodes in the ED and was intubated by Dr. Carr. Post intubation ABG demonstrates acute on chronic hypercapnic respiratory failure with pH of 7.30/ PaCO2 of 70/PA O2 of 527/bicarbonate 33. Temp is 96.4. Chest x-ray demonstrates hyperinflation but lungs are clear. WBC 10. /10: Easily arouses off sedation, on mechanical ventilation. Heart rate shot up following suctioning and she was in sinus tachycardia with a heart rate of 140s at the time of my evaluation with a systolic blood pressure 180s. Lopressor 5 g IV stat ordered. She is on a C Pap trial 09/24 Patient was extubated yesterday. Awake and alert. Afebrile. Objective Vital Signs Date Time Temp Pulse Resp B/P Pulse Ox O2 Delivery O2 Flow Rate FiO2 09/24/16 06:00 72 09/24/16 04:00 98.5 12 152/74 98 09/23/16 19:45 Venturi Mask 6.00 50 Intake and Output 09/23/16 09/23/16 09/24/16 08:00 16:00 00:00 Intake Total 779 ml 640 ml 240 ml Output Total 350 ml 1250 ml 700 ml Balance 429 ml -610 ml -460 ml Result Diagram: 09/24/16 0300 09/24/16 0300 Other Results Laboratory Tests Test 09/24/16 03:00 White Blood Count 9.5 TH/MM3 Red Blood Count 3.27 MIL/MM3 Hemoglobin 10.0 GM/DL Hematocrit 29.8 % Mean Corpuscular Volume 91.2 FL Mean Corpuscular Hemoglobin 30.7 PG Mean Corpuscular Hemoglobin 33.7 % Concent Red Cell Distribution Width 14.4 % Platelet Count 154 TH/MM3 Mean Platelet Volume 9.2 FL Neutrophils (%) (Auto) 91.3 % Lymphocytes (%) (Auto) 4.2 % Monocytes (%) (Auto) 4.4 % Eosinophils (%) (Auto) 0.0 % Basophils (%) (Auto) 0.1 % Neutrophils # (Auto) 8.7 TH/MM3 Lymphocytes # (Auto) 0.4 TH/MM3 Monocytes # (Auto) 0.4 TH/MM3 Eosinophils # (Auto) 0.0 TH/MM3 Basophils # (Auto) 0.0 TH/MM3 CBC Comment DIFF FINAL Differential Comment Sodium Level 138 MEQ/L Potassium Level 3.4 MEQ/L Chloride Level 97 MEQ/L Carbon Dioxide Level 34.1 MEQ/L Anion Gap 7 MEQ/L Blood Urea Nitrogen 28 MG/DL Creatinine 1.00 MG/DL Estimat Glomerular Filtration 57 ML/MIN Rate Random Glucose 102 MG/DL Calcium Level 8.7 MG/DL Magnesium Level 1.9 MG/DL Total Bilirubin 0.3 MG/DL Aspartate Amino Transf 33 U/L (AST/SGOT) Alanine Aminotransferase 35 U/L (ALT/SGPT) Alkaline Phosphatase 86 U/L Total Protein 6.4 GM/DL Albumin 3.3 GM/DL Imaging Last Impressions Chest X-Ray 09/24/16 0600 Signed Impressions: Service Date/Time: Saturday, September 24, 2016 04:42 - CONCLUSION: 1. Hyperinflation and probable bibasilar atelectasis. Saran Richardson MD CT Angiography 09/22/16 0004 Signed Impressions: Service Date/Time: Thursday, September 22, 2016 02:29 - CONCLUSION: 1. Severe emphysema. 2. No evidence for pulmonary embolism. 3. Minimal patchy densities right middle lobe and lingula. 4. Status post CABG. 5. Nonspecific left lower lobe densities. Followup CT chest in 3 months recommended for stability. Saran Richardson MD Objective Remarks GENERAL: Patient is 56 yo lying in bed in no acute distress SKIN: Warm and dry. HEAD: Normocephalic. EYES: No scleral icterus. No injection or drainage. NECK: Supple, trachea midline. No JVD or lymphadenopathy. CARDIOVASCULAR: Regular rate and rhythm without murmurs, gallops, or rubs. RESPIRATORY: Breath sounds equal bilaterally. No accessory muscle use. Few coarse BS GASTROINTESTINAL: Abdomen soft, non-tender, nondistended. MUSCULOSKELETAL: No cyanosis, or edema. Neuro: Awake an alert A/P Assessment and Plan NEURO: ? Psych history Awake and alert, avoid sedatives On Geodon 60 mg BID Acute on chronic hypercapnic respiratory failure- extubated 09/23 Acute COPD exacerbation- on 3L home oxygen Wean down oxygen as patrick keep sat >92% Bronchodilators, Solumederol 60mg Q6 NIPPV PRN for resp distress. Quang-Dr. Mars CT pulmonary angina gram-negative for PE, severe emphysema with infiltrates CV: Hypertension Coronary artery disease history of four-vessel CABG Reported history of CHF Monitor HR and BP keep MAP>65mmHg On Optrimtnpu82 mg daily, Lisinopril 40 mg daily, Isordil 20 Mg TID Metoprolol 50mg QID, Hydralazine 25mg TID GI: On PO diet FEN/RENAL: Acute kidney injury- improved Monitor renal function, I/O's, electrolytes replacement per protocol. Will need K replacement today On Lasix 20mg Q48hrs. ID: Levaquin for COPD exacerbation. Monitor for signs of infections ( Fever, WBC) HEME: Monitor CBC ENDO: Euglycemic. Low-dose insulin sliding scale with bedside glucose every 6 hours while on steroids. PROPH: SCDs and Lovenox 40 mg subcutaneous daily for DVT prophylaxis. Protonix 40 g IV daily for stress ulcer prophylaxis. ACCESS: Peripheral IV providing adequate access at this time. Will sign off and transfer care to [facility] Level 3 Shane Novak MD Sep 24, 2016 07:26
[2016-09-24 07:35] LABS: BLOOD GAS BASE EXCESS 6.6 mmol/L (-2-2); BLOOD GAS CARBOXYHEMOGLOBIN 1.3 % (0-4); BLOOD GAS HCO3 31 mmol/L (22-26); BLOOD GAS METHEMOGLOBIN 1.2 % (0-2); BLOOD GAS O2 HGB SATURATION 87 % (90-100); BLOOD GAS OXYGEN CONTENT 12.4 Vol % (12.0-20.0); BLOOD GAS PCO2 52 mmHg (38-42); BLOOD GAS PO2 60 mmHg (61-120); BLOOD GAS TOTAL HGB 10.1 G/DL (12.0-16.0); CRITICAL VALUE YES; TEMP CORR TO 98.6
[2016-09-24 07:36] LABS: DRAW SITE LT BRACHIAL; FIO2 35 %; LITER FLOW 6 L/M; NUMBER OF ARTERIAL PUNCTURES 1; OXYGEN DEVICE VENTI MASK; STAT NO
[2016-09-24] MEDS: CHLORHEXIDINE 0.12% (ORAL KIT) 15 ML CUP MT SCH ×2 (08:00→20:00)
[2016-09-24] MEDS: ZIPRASIDONE HCL 60 MG CAP PO SCH ×2 (08:05→20:18)
[2016-09-24] MEDS: ISOSORBIDE DINITRATE 20 MG TAB PO SCH ×3 (08:05→17:44)
[2016-09-24] MEDS: LISINOPRIL 20 MG TAB PO SCH (08:05)
[2016-09-24] MEDS: METOPROLOL TARTRATE 50 MG TAB PO SCH ×4 (08:05→20:18)
[2016-09-24] MEDS: SODIUM CHLORIDE 0.9% FLUSH 5 ML FLUSH IV FLUSH SCH ×2 (08:05→20:17)
[2016-09-24] MEDS: PANTOPRAZOLE SODIUM 40 MG VIAL IV SCH (08:05)
[2016-09-24] MEDS: hydrALAZINE HCL 25 MG TAB PO SCH ×3 (08:06→17:44)
[2016-09-24] MEDS: DOCUSATE SODIUM 100 MG CAP PO SCH ×2 (08:06→20:18)
[2016-09-24] MEDS ORDERED: FUROSEMIDE 20 MG/2 ML VIAL IV PUSH ONE (08:30)
[2016-09-24] MEDS: RESP: ALBUTEROL 2.5 MG/3 ML NEB (PRN) NEB ×2 (08:44→22:12)
--- NOTE | 2016-09-24 12:58 | HHI.PR ---
Subjective Remarks Feels better. Less wheezing. O2 sat 90 on 3 L. Objective Vital Signs Date Time Temp Pulse Resp B/P Pulse Ox O2 Delivery O2 Flow Rate FiO2 09/24/16 11:41 93 Nasal Cannula 3.00 09/24/16 10:00 75 09/24/16 08:00 78 09/24/16 08:00 97.6 78 26 127/58 90 09/24/16 06:00 72 09/24/16 04:00 98.5 74 12 152/74 98 09/24/16 04:00 74 09/24/16 02:00 77 09/24/16 00:00 98.7 82 35 180/74 93 09/24/16 00:00 82 09/23/16 22:00 94 09/23/16 20:00 98.1 93 22 145/72 93 09/23/16 20:00 93 09/23/16 19:45 91 Venturi Mask 6.00 50 09/23/16 18:00 104 09/23/16 16:00 98.2 96 17 188/74 91 09/23/16 16:00 96 09/23/16 14:00 89 I/O 09/23/16 09/23/16 09/23/16 09/24/16 09/24/16 09/24/16 07:00 15:00 23:00 07:00 15:00 23:00 Intake Total 779 ml 640 ml 240 ml 217 ml Output Total 350 ml 1250 ml 700 ml 500 ml Balance 429 ml -610 ml -460 ml -283 ml Intake Oral 200 ml 240 ml 50 ml IV Total 779 ml 380 ml 0 ml 107 ml Other 60 ml 60 ml Output Urine Total 350 ml 1250 ml 700 ml 500 ml # Bowel Movements 0 0 Result Diagram: 09/24/16 0300 09/24/16 0300 Objective Remarks General: This is an averagely built middle-aged white female who is alert, in no acute distress. HEENT: Head normocephalic. Pupils are reactive. Tongue moist. Nasal mucosa clear. Throat is clear. There is an NG tube in the nostril. Neck: Supple without venous distension. No bruits or thyroid enlargement, no lymphadenopathy. Chest: Increased AP diameter with scattered wheezes throughout both lung shea. Prolonged expirations. No crackles. Heart: The heart sounds are regular. S1 and S2. No murmur. No S3. Abdomen: Soft, benign. No masses or organomegaly. Extremities: No edema. Neuro: Normal reflexes. There are no gross motor deficits. Cranial nerves are grossly intact. Rectal: Exam is deferred. Skin: No lesions. Assessment and Plan Assessment and Plan IMPRESSION 1. Acute hypercapnic respiratory failure, resolved. 2. COPD with emphysema and chronic bronchitis. 3. Anxiety and depression. 4. History of coronary artery disease status post CABG. Plan : 1. O2 at 3L. 2. Nebs q4h W/A ,Duoneb. 3. Add Symbicort 160/4.5 mcg , 2puffs bid 4. Solumedrol 40 mg q6h. 5. Transfer to tele. 6. BMP in am. 7. PFT in am Rossi Mars MD Sep 24, 2016 12:58
[2016-09-24] MEDS: BUDESONIDE-FORMOTEROL 160/4.5 MCG INHALER INH SCH (20:17)
[2016-09-24] MEDS: ATORVASTATIN 80 MG TAB PO SCH (20:18)
[2016-09-25] VITALS (11 sets, daily range): BP systolic 99–153; BP diastolic 57–76; PULSE 67–75; RESP 20–24; TEMP 98.1–98.6; O2SAT 93–98
[2016-09-25] MEDS: ENOXAPARIN SODIUM 40 MG/0.4 ML SYRINGE SQ SCH (01:54)
[2016-09-25] MEDS: RESP: ALBUTEROL 2.5 MG/3 ML NEB (PRN) NEB ×2 (02:01→05:53)
[2016-09-25] MEDS: RESP: ALBUTEROL 2.5 MG/IPRATROPIUM 0.5 MG NEB (SCH) NEB ×7 (04:00→23:40)
[2016-09-25 04:54] LABS: AUTOMATED NEUTROPHIL # 10.1 TH/MM3 (1.8-7.7); BASOPHIL % 0.1 % (0.0-2.0); HEMATOCRIT 31.4 % (35.0-46.0); HEMO FLAGS DIFF FINAL; LYMPH % 3.6 % (9.0-44.0); LYMPHOCYTE # 0.4 TH/MM3 (1.0-4.8); MEAN CELL VOLUME 91.8 FL (80.0-100.0); MEAN CORPUSCULAR HEMOGLOBIN 30.6 PG (27.0-34.0); MEAN CORPUSCULAR HGB CONC 33.3 % (32.0-36.0); MONO % 3.1 % (0.0-8.0); NEUT % 93.2 % (16.0-70.0); PLATELET COUNT 151 TH/MM3 (150-450); RED BLOOD COUNT 3.42 MIL/MM3 (4.00-5.30); RED CELL DISTRIBUTION WIDTH 14.7 % (11.6-17.2); WHITE BLOOD COUNT 10.8 TH/MM3 (4.0-11.0)
[2016-09-25] MEDS: CHLORHEXIDINE GLUCONATE 2 % 1 PACK (2 CLOTHS) TOP SCH (05:00)
[2016-09-25] MEDS: INSULIN ASPART SUPPLEMENTAL SCALE SQ SCH ×4 (05:00→23:00)
[2016-09-25] MEDS: methylPREDNISolone SOD SUCC 40 MG/1 ML VIAL IV PUSH SCH ×2 (05:11→12:37)
[2016-09-25 05:18] LABS: BICARBONATE 32.6 MEQ/L (21.0-32.0); MAGNESIUM 2.2 MG/DL (1.5-2.5); POTASSIUM 4.4 MEQ/L (3.5-5.1)
[2016-09-25] MEDS: DOCUSATE SODIUM 100 MG CAP PO SCH ×2 (09:00→19:57)
[2016-09-25] MEDS: SODIUM CHLORIDE 0.9% FLUSH 5 ML FLUSH IV FLUSH SCH ×2 (09:00→19:58)
[2016-09-25] MEDS: ZIPRASIDONE HCL 60 MG CAP PO SCH ×2 (09:06→19:58)
[2016-09-25] MEDS: ISOSORBIDE DINITRATE 20 MG TAB PO SCH ×3 (09:06→18:30)
[2016-09-25] MEDS: LISINOPRIL 20 MG TAB PO SCH (09:06)
[2016-09-25] MEDS: METOPROLOL TARTRATE 50 MG TAB PO SCH ×4 (09:06→19:58)
[2016-09-25] MEDS: BUDESONIDE-FORMOTEROL 160/4.5 MCG INHALER INH SCH ×2 (09:06→19:58)
[2016-09-25] MEDS: FUROSEMIDE 20 MG TAB PO SCH (09:06)
[2016-09-25] MEDS: PANTOPRAZOLE SODIUM 40 MG VIAL IV SCH (09:07)
[2016-09-25] MEDS: hydrALAZINE HCL 25 MG TAB PO SCH ×3 (09:07→18:30)
--- NOTE | 2016-09-25 10:50 | HHI.PR ---
Subjective Remarks Follow-up COPD exacerbation/acute hypercapnic respiratory failure 09/25/16-patient seen and examined; although she report improvement or shortness of breath patient still has wheezing on expiratory otherwise no chest pain. Afebrile Objective Vitals Vital Signs Date Time Temp Pulse Resp B/P Pulse Ox O2 Delivery O2 Flow Rate FiO2 09/25/16 08:59 95 Nasal Cannula 3.00 09/25/16 04:00 98.1 73 24 152/68 97 09/25/16 04:00 73 09/25/16 00:00 71 09/25/16 00:00 98.5 71 20 140/76 98 09/24/16 20:00 88 09/24/16 20:00 98.7 88 24 117/86 88 09/24/16 19:36 94 Nasal Cannula 2.00 09/24/16 16:00 78 09/24/16 16:00 98.0 78 24 133/60 96 09/24/16 14:00 84 09/24/16 12:00 98.0 85 23 105/65 89 09/24/16 12:00 85 09/24/16 11:41 93 Nasal Cannula 3.00 I/O 09/24/16 09/24/16 09/24/16 09/25/16 09/25/16 09/25/16 07:00 15:00 23:00 07:00 15:00 23:00 Intake Total 217 ml 240 ml 600 ml 193 ml Output Total 500 ml 550 ml 250 ml 650 ml Balance -283 ml -310 ml 350 ml -457 ml Intake Oral 50 ml 240 ml 600 ml 30 ml IV Total 107 ml 0 ml 163 ml Other 60 ml Output Urine Total 500 ml 550 ml 250 ml 650 ml # Bowel Movements 1 0 0 Result Diagram: 09/25/16 0320 09/25/16 0320 Imaging Last Impressions Chest X-Ray 09/24/16 0600 Signed Impressions: Service Date/Time: Saturday, September 24, 2016 04:42 - CONCLUSION: 1. Hyperinflation and probable bibasilar atelectasis. Saran Richardson MD CT Angiography 09/22/16 0004 Signed Impressions: Service Date/Time: Thursday, September 22, 2016 02:29 - CONCLUSION: 1. Severe emphysema. 2. No evidence for pulmonary embolism. 3. Minimal patchy densities right middle lobe and lingula. 4. Status post CABG. 5. Nonspecific left lower lobe densities. Followup CT chest in 3 months recommended for stability. Saran Richardson MD Objective Remarks GENERAL: NAD SKIN: Warm and dry. HEAD: Normocephalic. EYES: No scleral icterus. No injection or drainage. NECK: Supple, trachea midline. No JVD or lymphadenopathy. CARDIOVASCULAR: Regular rate and rhythm without murmurs, gallops, or rubs. RESPIRATORY: Breath sounds equal bilaterally. No accessory muscle use. + Expiratory wheezing GASTROINTESTINAL: Abdomen soft, non-tender, nondistended. MUSCULOSKELETAL: No cyanosis, or edema. BACK: Nontender without obvious deformity. No CVA tenderness. A/P Problem List: (1) COPD with exacerbation ICD Code: J44.1 Status: Acute (2) Acute and chronic respiratory failure with hypercapnia ICD Code: J96.22 Status: Acute Assessment and Plan 56-year-old female with Acute on chronic hypercapnic respiratory failure- extubated 09/23 Acute COPD exacerbation- on 3L home oxygen Wean down oxygen as patrick keep sat >92% Improving on Bronchodilators,Symbicort, Levaquin, Solu Medrol 60mg Q6 however will change to Q12H today 09/25/16 CT pulmonary angina gram-negative for PE, severe emphysema with infiltrates Appreciate input from pulmonary medicine Hypertension Coronary artery disease history of four-vessel CABG Reported history of CHF On Fxahqtymhi11 mg daily, Lasix 20 mg daily 48h, Lisinopril 40 mg daily, Isordil 20 Mg TID ,Metoprolol 50mg QID, Hydralazine 25mg TID Hyperlipidemia: Continue statin Acute kidney injury- improved Monitor renal function, I/O's, electrolytes replacement per protocol. ENDO: Euglycemic. Low-dose insulin sliding scale with bedside glucose every 6 hours while on steroids. PROPH: SCDs and Lovenox 40 mg subcutaneous daily for DVT prophylaxis. Protonix 40 g IV daily for stress ulcer prophylaxis. Transfer to Saran Stringer MD Sep 25, 2016 10:50
--- NOTE | 2016-09-25 12:34 | HHI.PR ---
Subjective Remarks Improving. Less wheezing. O2 sat 94 on 3 L. Good output Objective Vital Signs Date Time Temp Pulse Resp B/P Pulse Ox O2 Delivery O2 Flow Rate FiO2 09/25/16 08:59 95 Nasal Cannula 3.00 09/25/16 04:00 98.1 73 24 152/68 97 09/25/16 04:00 73 09/25/16 00:00 71 09/25/16 00:00 98.5 71 20 140/76 98 09/24/16 20:00 88 09/24/16 20:00 98.7 88 24 117/86 88 09/24/16 19:36 94 Nasal Cannula 2.00 09/24/16 16:00 78 09/24/16 16:00 98.0 78 24 133/60 96 09/24/16 14:00 84 I/O 09/24/16 09/24/16 09/24/16 09/25/16 09/25/16 09/25/16 07:00 15:00 23:00 07:00 15:00 23:00 Intake Total 217 ml 240 ml 600 ml 193 ml Output Total 500 ml 550 ml 250 ml 650 ml Balance -283 ml -310 ml 350 ml -457 ml Intake Oral 50 ml 240 ml 600 ml 30 ml IV Total 107 ml 0 ml 163 ml Other 60 ml Output Urine Total 500 ml 550 ml 250 ml 650 ml # Bowel Movements 1 0 0 Result Diagram: 09/25/16 0320 09/25/16 0320 Objective Remarks General: This is an averagely built middle-aged white female who is alert, in no acute distress. HEENT: Head normocephalic. Pupils are reactive. Tongue moist. Nasal mucosa clear. Throat is clear. Neck: Supple without venous distension. No bruits or thyroid enlargement, no lymphadenopathy. Chest: Increased AP diameter with scattered wheezes over both lung shea. Prolonged expirations. No crackles. Heart: The heart sounds are regular. S1 and S2. No murmur. No S3. Abdomen: Soft, benign. No masses or organomegaly. Extremities: No edema. Neuro: Normal reflexes. There are no gross motor deficits. Rectal: Exam is deferred. Skin: No lesions. Assessment and Plan Assessment and Plan IMPRESSION 1. Acute hypercapnic respiratory failure, resolved. 2. COPD with emphysema and chronic bronchitis. 3. Anxiety and depression. 4. History of coronary artery disease status post CABG. Plan : 1. O2 at 3L. 2. Nebs q4h W/A ,Duoneb. 3. Cont Symbicort 160/4.5 mcg , 2puffs bid 4. Solumedrol 40 mg q8h. 5. Transfer to [facility]. 6. IS at bedside Rossi Stanton MD Sep 25, 2016 12:34
[2016-09-25] MEDS: ATORVASTATIN 80 MG TAB PO SCH (19:58)
[2016-09-25] MEDS: CHLORHEXIDINE 0.12% (ORAL KIT) 15 ML CUP MT SCH (20:00)
[2016-09-26] VITALS (9 sets, daily range): BP systolic 100–132; BP diastolic 56–67; PULSE 67–98; RESP 18–20; TEMP 97.9–99; O2SAT 92–97
[2016-09-26] MEDS: methylPREDNISolone SOD SUCC 40 MG/1 ML VIAL IV PUSH SCH ×2 (00:05→12:12)
[2016-09-26] MEDS: ENOXAPARIN SODIUM 40 MG/0.4 ML SYRINGE SQ SCH (00:06)
[2016-09-26 01:50] LABS: CRITICAL VALUE YES
[2016-09-26] MEDS: RESP: ALBUTEROL 2.5 MG/IPRATROPIUM 0.5 MG NEB (SCH) NEB ×5 (03:44→19:32)
[2016-09-26] MEDS: CHLORHEXIDINE GLUCONATE 2 % 1 PACK (2 CLOTHS) TOP SCH (04:00)
[2016-09-26] MEDS: INSULIN ASPART SUPPLEMENTAL SCALE SQ SCH ×4 (05:00→22:20)
[2016-09-26 07:15] LABS: AUTOMATED NEUTROPHIL # 10.6 TH/MM3 (1.8-7.7); BASOPHIL % 0.1 % (0.0-2.0); HEMATOCRIT 33.4 % (35.0-46.0); HEMO FLAGS DIFF FINAL; LYMPH % 4.5 % (9.0-44.0); LYMPHOCYTE # 0.5 TH/MM3 (1.0-4.8); MEAN CELL VOLUME 91.3 FL (80.0-100.0); MEAN CORPUSCULAR HEMOGLOBIN 30.3 PG (27.0-34.0); MEAN CORPUSCULAR HGB CONC 33.2 % (32.0-36.0); MONO % 3.3 % (0.0-8.0); NEUT % 92.1 % (16.0-70.0); PLATELET COUNT 159 TH/MM3 (150-450); RED BLOOD COUNT 3.66 MIL/MM3 (4.00-5.30); RED CELL DISTRIBUTION WIDTH 14.7 % (11.6-17.2); WHITE BLOOD COUNT 11.6 TH/MM3 (4.0-11.0)
[2016-09-26 07:29] LABS: BICARBONATE 33.6 MEQ/L (21.0-32.0); POTASSIUM 4.8 MEQ/L (3.5-5.1)
[2016-09-26] MEDS: CHLORHEXIDINE 0.12% (ORAL KIT) 15 ML CUP MT SCH (08:00)
[2016-09-26] MEDS: METOPROLOL TARTRATE 50 MG TAB PO SCH ×4 (08:09→20:46)
[2016-09-26] MEDS: LISINOPRIL 20 MG TAB PO SCH (08:25)
[2016-09-26] MEDS: ISOSORBIDE DINITRATE 20 MG TAB PO SCH ×3 (08:25→16:55)
[2016-09-26] MEDS: BUDESONIDE-FORMOTEROL 160/4.5 MCG INHALER INH SCH ×2 (08:25→20:46)
[2016-09-26] MEDS: hydrALAZINE HCL 25 MG TAB PO SCH ×3 (08:25→16:55)
[2016-09-26] MEDS: ZIPRASIDONE HCL 60 MG CAP PO SCH ×2 (08:25→20:45)
[2016-09-26] MEDS: DOCUSATE SODIUM 100 MG CAP PO SCH ×2 (08:25→20:45)
[2016-09-26] MEDS: PANTOPRAZOLE SODIUM 40 MG VIAL IV SCH (08:25)
[2016-09-26] MEDS: SODIUM CHLORIDE 0.9% FLUSH 5 ML FLUSH IV FLUSH SCH ×2 (08:25→20:46)
[2016-09-26] MEDS ORDERED: LEVOFLOXACIN 500 MG TAB PO SCH (09:00)
--- NOTE | 2016-09-26 10:58 | HHI.PR ---
Subjective Remarks Follow-up COPD exacerbation/acute hypercapnic respiratory failure 09/25/16-patient seen and examined; although she report improvement or shortness of breath patient still has wheezing on expiratory otherwise no chest pain. Afebrile 09/26/16-patient seen and examined, report improvement of shortness of breath. Currently starting on 3 L nasal cannula. No acute event overnight. Objective Vitals Vital Signs Date Time Temp Pulse Resp B/P Pulse Ox O2 Delivery O2 Flow Rate FiO2 09/26/16 08:00 81 09/26/16 08:00 99.0 67 18 131/66 95 09/26/16 07:37 97 Nasal Cannula 3.00 09/26/16 04:17 98.0 70 18 119/59 95 09/26/16 00:15 97.9 67 20 123/67 97 09/25/16 23:46 98 Nasal Cannula 3.00 09/25/16 22:59 67 09/25/16 21:00 98.2 75 24 114/63 95 09/25/16 20:00 98.6 74 24 127/57 98 09/25/16 20:00 73 09/25/16 19:52 93 Nasal Cannula 3.00 09/25/16 16:00 73 09/25/16 16:00 98.6 74 24 115/74 98 09/25/16 12:00 98.5 74 24 99/64 96 09/25/16 12:00 73 I/O 09/25/16 09/25/16 09/25/16 09/26/16 09/26/16 09/26/16 07:00 15:00 23:00 07:00 15:00 23:00 Intake Total 193 ml 800 ml 120 ml Output Total 650 ml 950 ml 450 ml Balance -457 ml -150 ml -330 ml Intake Oral 30 ml 800 ml 120 ml IV Total 163 ml Output Urine Total 650 ml 950 ml 450 ml # Bowel Movements 0 Result Diagram: 09/26/16 0640 09/26/16 0640 Imaging Last Impressions Chest X-Ray 09/24/16 0600 Signed Impressions: Service Date/Time: Saturday, September 24, 2016 04:42 - CONCLUSION: 1. Hyperinflation and probable bibasilar atelectasis. Saran Richardson MD CT Angiography 09/22/16 0004 Signed Impressions: Service Date/Time: Thursday, September 22, 2016 02:29 - CONCLUSION: 1. Severe emphysema. 2. No evidence for pulmonary embolism. 3. Minimal patchy densities right middle lobe and lingula. 4. Status post CABG. 5. Nonspecific left lower lobe densities. Followup CT chest in 3 months recommended for stability. Saran Richardson MD Objective Remarks GENERAL: NAD SKIN: Warm and dry. HEAD: Normocephalic. EYES: No scleral icterus. No injection or drainage. NECK: Supple, trachea midline. No JVD or lymphadenopathy. CARDIOVASCULAR: Regular rate and rhythm with II/ LISA RESPIRATORY: Breath sounds equal bilaterally. No accessory muscle use. GASTROINTESTINAL: Abdomen soft, non-tender, nondistended. MUSCULOSKELETAL: No cyanosis, or edema. BACK: Nontender without obvious deformity. No CVA tenderness. A/P Problem List: (1) COPD with exacerbation ICD Code: J44.1 Status: Acute (2) Acute and chronic respiratory failure with hypercapnia ICD Code: J96.22 Status: Acute Assessment and Plan 56-year-old female with Acute on chronic hypercapnic respiratory failure- extubated 09/23 Acute COPD exacerbation- on 3L home oxygen Wean down oxygen as patrick keep sat >92% Improving on Bronchodilators,Symbicort, Levaquin, Solu Medrol 40mg Q12H and will change to by mouth prednisone in a.m. 09/27/16 CT pulmonary angina gram-negative for PE, severe emphysema with infiltrates Appreciate input from pulmonary medicine Hypertension Coronary artery disease history of four-vessel CABG Reported history of CHF On Hlzxjmrlau50 mg daily, Lasix 20 mg daily 48h, Lisinopril 40 mg daily, Isordil 20 Mg TID ,Metoprolol 50mg QID, Hydralazine 25mg TID Hyperlipidemia: Continue statin Acute kidney injury- improved Monitor renal function, I/O's, electrolytes replacement per protocol. ENDO: Euglycemic. Low-dose insulin sliding scale with bedside glucose every 6 hours while on steroids. PROPH: SCDs and Lovenox 40 mg subcutaneous daily for DVT prophylaxis. Protonix 40 mg daily for stress ulcer prophylaxis. Transfer to [facility] Discharge Planning Likely discharge 09/27/16 Saran Narayanan MD Sep 26, 2016 10:57
--- NOTE | 2016-09-26 19:12 | HHI.PR ---
Subjective Remarks Feels better. O2 sat 95 on 3 L. wants to go home. Objective Vital Signs Date Time Temp Pulse Resp B/P Pulse Ox O2 Delivery O2 Flow Rate FiO2 09/26/16 16:00 98.0 98 18 118/58 97 09/26/16 12:00 98.5 85 20 100/56 92 09/26/16 08:00 81 09/26/16 08:00 99.0 67 18 131/66 95 09/26/16 07:37 97 Nasal Cannula 3.00 09/26/16 04:17 98.0 70 18 119/59 95 09/26/16 00:15 97.9 67 20 123/67 97 09/25/16 23:46 98 Nasal Cannula 3.00 09/25/16 22:59 67 09/25/16 21:00 98.2 75 24 114/63 95 09/25/16 20:00 98.6 74 24 127/57 98 09/25/16 20:00 73 09/25/16 19:52 93 Nasal Cannula 3.00 I/O 09/25/16 09/25/16 09/25/16 09/26/16 09/26/16 09/26/16 07:00 15:00 23:00 07:00 15:00 23:00 Intake Total 193 ml 800 ml 120 ml 735 ml Output Total 650 ml 950 ml 450 ml 450 ml Balance -457 ml -150 ml -330 ml 285 ml Intake Oral 30 ml 800 ml 120 ml 720 ml IV Total 163 ml 15 ml Output Urine Total 650 ml 950 ml 450 ml 450 ml # Bowel Movements 0 1 Result Diagram: 09/26/16 0640 09/26/16 0640 Objective Remarks General: This is an averagely built middle-aged white female who is alert, in no acute distress. HEENT: Head normocephalic. Pupils are reactive. Tongue moist. Nasal mucosa clear. Throat is clear. Neck: Supple without venous distension. No bruits or thyroid enlargement, no lymphadenopathy. Chest: Increased AP diameter with scattered wheezes over both lung shea. Prolonged expirations. Heart: The heart sounds are regular. S1 and S2. No murmur. No S3. Abdomen: Soft, benign. No masses or organomegaly. Extremities: No edema. Neuro: Normal reflexes. There are no gross motor deficits. Rectal: Exam is deferred. Skin: No lesions. Assessment and Plan Assessment and Plan IMPRESSION 1. Acute hypercapnic respiratory failure, resolved. 2. COPD with emphysema and chronic bronchitis. 3. Anxiety and depression. 4. History of coronary artery disease status post CABG. Plan : 1. O2 at 3L. 2. Nebs qid,Duoneb. 3. Cont Symbicort 160/4.5 mcg , 2puffs bid 4. D/C Solumedrol , Levaquin 5. Add Prednisone 20 mg bid and taper 6. IS at bedside qid 7. OK to go home on PO meds Rossi Mars MD Sep 26, 2016 19:12
[2016-09-26] MEDS: predniSONE 20 MG TAB PO SCH (20:45)
[2016-09-26] MEDS: ATORVASTATIN 80 MG TAB PO SCH (20:45)
[2016-09-27] MEDS: RESP: ALBUTEROL 2.5 MG/IPRATROPIUM 0.5 MG NEB (SCH) NEB ×4 (00:15→11:00)
[2016-09-27] MEDS: ENOXAPARIN SODIUM 40 MG/0.4 ML SYRINGE SQ SCH (00:22)
[2016-09-27 01:07] VITALS: BP 131/57; PULSE 66; RESP 18; TEMP 98.1; O2SAT 97
[2016-09-27 04:00] VITALS: BP 115/55; PULSE 73; RESP 18; TEMP 98.3; O2SAT 98
[2016-09-27] MEDS: CHLORHEXIDINE GLUCONATE 2 % 1 PACK (2 CLOTHS) TOP SCH (04:00)
[2016-09-27] MEDS: INSULIN ASPART SUPPLEMENTAL SCALE SQ SCH (05:00)
[2016-09-27 07:22] VITALS: O2SAT 98
[2016-09-27 08:00] VITALS: BP 131/60; PULSE 83; RESP 16; TEMP 98.2; O2SAT 97
[2016-09-27] MEDS: CHLORHEXIDINE 0.12% (ORAL KIT) 15 ML CUP MT SCH (08:00)
[2016-09-27] MEDS: LISINOPRIL 20 MG TAB PO SCH (08:33)
[2016-09-27] MEDS: ZIPRASIDONE HCL 60 MG CAP PO SCH (08:33)
[2016-09-27] MEDS: hydrALAZINE HCL 25 MG TAB PO SCH (08:33)
[2016-09-27] MEDS: ISOSORBIDE DINITRATE 20 MG TAB PO SCH (08:34)
[2016-09-27] MEDS: METOPROLOL TARTRATE 50 MG TAB PO SCH (08:34)
[2016-09-27] MEDS: BUDESONIDE-FORMOTEROL 160/4.5 MCG INHALER INH SCH (08:34)
[2016-09-27] MEDS: DOCUSATE SODIUM 100 MG CAP PO SCH (08:35)
[2016-09-27] MEDS: SODIUM CHLORIDE 0.9% FLUSH 5 ML FLUSH IV FLUSH SCH (08:36)
[2016-09-27] MEDS ORDERED: predniSONE 20 MG TAB PO SCH (09:00)
[2016-09-27] MEDS ORDERED: PANTOPRAZOLE SOD 40 MG DELAYED RELEASE TAB PO SCH (09:00)
[2016-09-27] MEDS: predniSONE 20 MG TAB PO SCH (09:00)
[2016-09-27] MEDS ORDERED: LEVOFLOXACIN 250 MG TAB PO SCH (09:00)
[2016-09-27] MEDS: FUROSEMIDE 20 MG TAB PO SCH (10:30)
--- NOTE | 2016-09-27 10:56 | HHI.PR ---
Subjective Remarks Follow-up COPD exacerbation/acute hypercapnic respiratory failure 09/25/16-patient seen and examined; although she report improvement or shortness of breath patient still has wheezing on expiratory otherwise no chest pain. Afebrile 09/26/16-patient seen and examined, report improvement of shortness of breath. Currently starting on 3 L nasal cannula. No acute event overnight. 09/27/16-patient seen and examined, reports significant improvement of shortness of breath and denies any chest pain. Ready to go home. Objective Vitals Vital Signs Date Time Temp Pulse Resp B/P Pulse Ox O2 Delivery O2 Flow Rate FiO2 09/27/16 08:00 98.2 83 16 131/60 97 09/27/16 07:22 98 Nasal Cannula 3.00 09/27/16 04:00 Nasal Cannula 3.00 09/27/16 04:00 98.3 73 18 115/55 98 09/27/16 01:07 98.1 66 18 131/57 97 09/27/16 00:00 Nasal Cannula 3.00 09/26/16 20:05 74 09/26/16 20:00 Nasal Cannula 3.00 09/26/16 20:00 Nasal Cannula 3.00 09/26/16 20:00 98.1 76 20 132/63 96 09/26/16 19:36 97 Nasal Cannula 2.00 09/26/16 16:00 98.0 98 18 118/58 97 09/26/16 12:00 98.5 85 20 100/56 92 I/O 09/26/16 09/26/16 09/26/16 09/27/16 09/27/16 09/27/16 07:00 15:00 23:00 07:00 15:00 23:00 Intake Total 120 ml 735 ml Output Total 450 ml 450 ml Balance -330 ml 285 ml Intake Oral 120 ml 720 ml IV Total 15 ml Output Urine Total 450 ml 450 ml # Bowel Movements 1 Result Diagram: 09/26/1640 09/26/16 0640 Imaging Last Impressions Chest X-Ray 09/24/16 0600 Signed Impressions: Service Date/Time: Saturday, September 24, 2016 04:42 - CONCLUSION: 1. Hyperinflation and probable bibasilar atelectasis. Saran Richardson MD CT Angiography 09/22/16 0004 Signed Impressions: Service Date/Time: Thursday, September 22, 2016 02:29 - CONCLUSION: 1. Severe emphysema. 2. No evidence for pulmonary embolism. 3. Minimal patchy densities right middle lobe and lingula. 4. Status post CABG. 5. Nonspecific left lower lobe densities. Followup CT chest in 3 months recommended for stability. Saran Richardson MD Objective Remarks GENERAL: NAD SKIN: Warm and dry. HEAD: Normocephalic. EYES: No scleral icterus. No injection or drainage. NECK: Supple, trachea midline. No JVD or lymphadenopathy. CARDIOVASCULAR: Regular rate and rhythm with II/ LISA RESPIRATORY: Breath sounds equal bilaterally. No accessory muscle use. GASTROINTESTINAL: Abdomen soft, non-tender, nondistended. MUSCULOSKELETAL: No cyanosis, or edema. BACK: Nontender without obvious deformity. No CVA tenderness. Procedures None A/P Problem List: (1) COPD with exacerbation ICD Code: J44.1 Status: Acute (2) Acute and chronic respiratory failure with hypercapnia ICD Code: J96.22 Status: Acute Assessment and Plan 56-year-old female with Acute on chronic hypercapnic respiratory failure- extubated 09/23 Acute COPD exacerbation- on 3L home oxygen Wean down oxygen as patrick keep sat >92% Improved on Bronchodilators,Symbicort, Levaquin, s/p Solu Medrol 40mg Q12H and now on prednisone by mouth 20 mg twice a day and taper CT pulmonary angina gram-negative for PE, severe emphysema with infiltrates Appreciate input from pulmonary medicine Hypertension Coronary artery disease history of four-vessel CABG Reported history of CHF On Hixaketoqe00 mg daily, Lasix 20 mg daily 48h, Lisinopril 40 mg daily, Isordil 20 Mg TID ,Metoprolol 50mg QID, Hydralazine 25mg TID Hyperlipidemia: Continue statin Acute kidney injury- improved Monitor renal function, I/O's, electrolytes replacement per protocol. ENDO: Euglycemic. Low-dose insulin sliding scale with bedside glucose every 6 hours while on steroids. PROPH: SCDs and Lovenox 40 mg subcutaneous daily for DVT prophylaxis. Protonix 40 mg daily for stress ulcer prophylaxis. Discharge Planning Likely discharge 09/27/16 Saran Narayanan MD Sep 27, 2016 10:56
[2016-09-27] MEDS ORDERED: SYMB160A INH (10:58)
[2016-09-27] MEDS ORDERED: IPRA17I INH (10:58)
[2016-09-27] MEDS ORDERED: PRED10PA2 PO (10:58)
--- NOTE | 2016-09-27 11:02 | HHI.DS ---
Discharge Summary Admission Date Sep 22, 2016 at 00:31 Discharge Date: Sep 27, 2016 Admitting Diagnosis (1) COPD with exacerbation ICD Code: J44.1 (2) Acute and chronic respiratory failure with hypercapnia ICD Code: J96.22 Procedures None Brief History - From Admission 56-year-old female who came in as "Syeda Vitale "who is reportedly named Shanice Lynch. She has a history of hypertension, coronary artery disease with prior 4 vessel CABG, CHF, COPD who is on 3 L of home oxygen therapy. She presented to [facility] emergency department on 09/21/15 at around 1700 with complaints of a 6 day history of fatigue and a couple of days of cough productive of green sputum. She was wheezing upon presentation and was administered Solu-Medrol 125 mg IV and 3 DuoNeb's in the emergency department. She denied chest pain. She felt symptomatically improved and was discharged with prescriptions for DuoNeb, azithromycin, and prednisone. Tonight 09/21 she presented again to the emergency department at 2300 after she was brought in by [facility] with severe respiratory distress. Room air sats were 70s upon their arrival and she did not improve with DuoNebs. She was having apneic episodes in the ED and was intubated by Dr. Carr. Post intubation ABG demonstrates acute on chronic hypercapnic respiratory failure with pH of 7.30/PaCO2 of 70/PA O2 of 527/bicarbonate 33. Temp is 96.4. Chest x-ray demonstrates hyperinflation but lungs are clear. WBC 10. CBC/BMP: 09/26/16 0640 09/26/16 0640 Significant Findings Laboratory Tests Test 09/25/16 09/26/16 03:20 06:40 Red Blood Count 3.42 MIL/MM3 3.66 MIL/MM3 (4.00-5.30) (4.00-5.30) Hemoglobin 10.5 GM/DL 11.1 GM/DL (11.6-15.3) (11.6-15.3) Hematocrit 31.4 % 33.4 % (35.0-46.0) (35.0-46.0) Neutrophils (%) (Auto) 93.2 % 92.1 % (16.0-70.0) (16.0-70.0) Lymphocytes (%) (Auto) 3.6 % 4.5 % (9.0-44.0) (9.0-44.0) Neutrophils # (Auto) 10.1 TH/MM3 10.6 TH/MM3 (1.8-7.7) (1.8-7.7) Lymphocytes # (Auto) 0.4 TH/MM3 0.5 TH/MM3 (1.0-4.8) (1.0-4.8) Carbon Dioxide Level 32.6 MEQ/L 33.6 MEQ/L (21.0-32.0) (21.0-32.0) Blood Urea Nitrogen 41 MG/DL (7-18) 46 MG/DL (7-18) Creatinine 1.24 MG/DL 1.38 MG/DL (0.50-1.00) (0.50-1.00) Estimat Glomerular Filtration 45 ML/MIN (>89) 39 ML/MIN (>89) Rate White Blood Count 11.6 TH/MM3 (4.0-11.0) Random Glucose 110 MG/DL (74-106) Imaging Last Impressions Chest X-Ray 09/24/16 0600 Signed Impressions: Service Date/Time: Saturday, September 24, 2016 04:42 - CONCLUSION: 1. Hyperinflation and probable bibasilar atelectasis. Saran Richardson MD CT Angiography 09/22/16 0004 Signed Impressions: Service Date/Time: Thursday, September 22, 2016 02:29 - CONCLUSION: 1. Severe emphysema. 2. No evidence for pulmonary embolism. 3. Minimal patchy densities right middle lobe and lingula. 4. Status post CABG. 5. Nonspecific left lower lobe densities. Followup CT chest in 3 months recommended for stability. Saran Richardson MD PE at Discharge GENERAL: NAD SKIN: Warm and dry. HEAD: Normocephalic. EYES: No scleral icterus. No injection or drainage. NECK: Supple, trachea midline. No JVD or lymphadenopathy. CARDIOVASCULAR: Regular rate and rhythm with II/ LISA RESPIRATORY: Breath sounds equal bilaterally. No accessory muscle use. GASTROINTESTINAL: Abdomen soft, non-tender, nondistended. MUSCULOSKELETAL: No cyanosis, or edema. BACK: Nontender without obvious deformity. No CVA tenderness. Hospital Course Patient initially admitted secondary to respiratory failure and intubated by critical care medicine. She was extubated on 09/23/16 and continue treatment for acute COPD exacerbation with IV steroid, bronchodilator, antibiotics, oxygen nasal cannula. Pulmonary medicine was consulted. Her respiratory symptoms improve and patient was subsequently switched to by mouth steroid and transfer to [facility]. Her medications for other chronic medical conditions were resumed. DVT and GI prophylaxis were provided. Prior to discharge, patient's vitals remained stable and oxygen saturations remained above 92% on 3 L nasal cannula Pt Condition on Discharge: Stable Discharge Disposition: Discharge Home Discharge Time: <= 30 minutes Discharge Instructions DIET: Follow Instructions for: Heart Healthy Diet Activities you can perform: Regular-No Restrictions Follow up Referrals: PCP Follow-up - 1 Week New Medications: Ipratropium HFA 12.9 GM Inh (Atrovent HFA 12.9 GM Inh) 17 Mcg/Act Aer 2 PUFF INH QID Breathing Treatment #1 Ref 3 INHALER Prednisone (48) 10 mg tab Dose Pack (Prednisone (48) 10 mg tab Dose Pack) 10 Mg Dspk 10 MG PO DIRECTED Inflammation #1 Ref 0 DSPK Budesonide-Formoterol Inh (Symbicort Inh) 160-4.5 Mcg/Act Aero 2 PUFF INH Q12HR Breathing Treatment #60 Ref 3 INHALER Continued Medications: Amlodipine (Amlodipine) 5 Mg Tab 5 MG PO DAILY Blood Pressure Management #30 Ref 0 TAB Atorvastatin (Atorvastatin) 80 Mg Tab 80 MG PO HS Cholesterol Management #30 Ref 0 TAB Furosemide (Furosemide) 20 Mg Tab 20 MG PO EVERY OTHER DAY #30 Ref 0 TAB Hydralazine (Hydralazine) 25 Mg Tab 25 MG PO TID Take with a meal Blood Pressure Management #90 Ref 0 TAB Isosorbide Dinitrate (Isosorbide Dinitrate) 20 Mg Tab 20 MG PO TID Ref 0 TAB Lisinopril (Lisinopril) 40 Mg Tab 40 MG PO DAILY Blood Pressure Management #30 Ref 0 TAB Metoprolol Tartrate (Metoprolol Tartrate) 100 Mg Tab 100 MG PO BID #60 Ref 0 TAB Ziprasidone (Ziprasidone) 60 Mg Cap 60 MG PO BID #60 Ref 0 CAP Pontey,Saran MD Sep 27, 2016 11:02
== END 2016-09-27 12:50 | disposition home or self-care (01) | DRG 208 ==
LOC: NEPC 23:04 → NEDA 09-22 00:31 → EDBD 09-22 00:31 → HIMW 09-22 02:40 → N04A 09-25 20:47
PROVIDERS: ADMIT Hospitalist; ATTEND Hospitalist
PROC: 0BH17EZ Insertion of Endotracheal Airway into Trachea, Via Natural or Artificial Opening (ICD-10-PCS; principal; 2016-09-22)
PROC: 5A1945Z Respiratory Ventilation, 24-96 Consecutive Hours (ICD-10-PCS; 2016-09-22)
DX: J96.22 Acute and chronic respiratory failure with hypercapnia (principal); N17.9 Acute kidney failure, unspecified; J18.9 Pneumonia, unspecified organism; Z99.11 Dependence on respirator [ventilator] status; J44.1 Chronic obstructive pulmonary disease with (acute) exacerbation; I25.810 Atherosclerosis of coronary artery bypass graft(s) without angina pectoris; Z99.81 Dependence on supplemental oxygen; I10 Essential (primary) hypertension; Z95.1 Presence of aortocoronary bypass graft; F41.8 Other specified anxiety disorders; E78.5 Hyperlipidemia, unspecified; F17.200 Nicotine dependence, unspecified, uncomplicated
CPT/HCPCS: 36600; 43753; 51702; 71010; 71275; 80048; 80053; 81001; 82550; 82552; 82805; 82948; 83605; 83690; 83735; 83880; 84100; 84484; 85025; 85610; 85730; 87040; 87070; 87205; 87641; 87804; 93005; 93306; 94002; 94003; 94150; 94640; 94664; 96365; C9113; J1650; J1815; J1956; J2920; J2930; J7030; J7512; J7613; Q9967